=== PATIENT | male | born 1950 | race Caucasian/White ===

== ENCOUNTER → 2024-07-25 09:47 | Outpatient (REF) | payer OTHER, SELFPAY | LOC: RCS 09:47 | PROVIDERS: ATTENDING PHYSICIAN Nurse Practitioner Acute Care; FAMILY PHYSICIAN Family Medicine | DX: I71.43 Infrarenal abdominal aortic aneurysm, without rupture (principal); Z01.810 Encounter for preprocedural cardiovascular examination | CPT/HCPCS: 93306 ==

== ENCOUNTER → 2024-08-10 10:26 | Outpatient (REF) | payer OTHER, SELFPAY ==
[2024-08-10 11:47] LABS: Blood Urea Nitrogen 46 mg/dl (9-20); Calcium 9.4 mg/dl (8.4-10.2); Carbon Dioxide 30 mmol/L (22-30); Chloride 99 mmol/L (98-107); Glucose 99 mg/dl (70-99); Potassium 4.7 mmol/L (3.5-5.1); Sodium 140 mmol/L (135-145); eGFR 45.21
== END ==
LOC: RAD 10:26
PROVIDERS: ATTENDING PHYSICIAN Nurse Practitioner Acute Care; FAMILY PHYSICIAN Family Medicine; REFERRING PHYSICIAN Nurse Practitioner
DX: I71.43 Infrarenal abdominal aortic aneurysm, without rupture (principal); I73.9 Peripheral vascular disease, unspecified; Z01.810 Encounter for preprocedural cardiovascular examination; Z87.891 Personal history of nicotine dependence
CPT/HCPCS: 36415; 80048; 93880

== ENCOUNTER 2024-08-12 19:15 | Inpatient (IN) | payer OTHER, SELFPAY ==
[2024-08-12] VITALS (9 sets, daily range): BP systolic 94–134; BP diastolic 70–98; BMI 17.7
--- NOTE | 2024-08-12 12:16 | ED.GENMED ---
History of Present Illness
<Yani Rodriguez PA-C - Last Filed: 08/12/24 17:29>
General
Chief Complaint: DVT/Possible Blood Clot
Source: patient
Exam Limitations: none
Time Seen by Provider: 08/12/24 12:08
Nursing documentation reviewed up to this point in time: agreed with
History of Present Illness
History of Present Illness:
This is a 74 y/o male with pmh of COPD, HTN, HLP presents emergency department today with a sudden onset of left lower extremity pain for the past 3 days. Patient reports that the pain is worse with walking. Patient denies any paresthesias in his
extremities, any loss of sensation. Of note, patient states that in that same leg, he broke his leg and subsequently had blood clots, and he was put on Eliquis few months ago. Patient did take his morning dose of Eliquis today. Patient states
that he was told he has 'possible clots' in his leg and an appointment was set up to see Dr. Tinajero vascular surgeon at [facility] and to reassess his abdominal aneurysm, however he had increasing pain in his leg and so he presented to
the emergency department today. Patient denies any chest pain, abdominal pain, shortness of breath, dizziness, lightheadedness. Patient does wear 2 L of oxygen daily for his history of COPD.
Past History
<ABDULKADIR Hagen Last Filed: 08/12/24 17:29>
Past History
ED Past Medical History: COPD, HTN, Hypercholesterolemia and Psychiatric (anxiety)
Social History
Tobacco: Non-smoker
Alcohol: None
Drug: None
Personal: Single
Living: alone
Review of Systems
<ABDULKADIR Hagen Last Filed: 08/12/24 17:29>
Review of Systems
All Other Systems: ROS reviewed and negative except as documented in HPI and ROS
Phy Exam
<ABDULKADIR Hagen Last Filed: 08/12/24 17:29>
Physical Exam
Physical Exam:
General: Patient is well appearing and in no acute distress; non-toxic
Skin: left lower extremity cool to the touch
Head: Normocephalic, atraumatic
Eyes: Sclera non-icteric. EOMs intact.
Cardiac: Regular rate
Peripheral Vascular: left lower extremity cool to the touch.
RLE: 1+ dorsalis pedis pulse with doppler. Bounding palpable femoral pulse
LLE: Diminished femoral pulse to palpation. Lack of DP pulses with Doppler.
Pulm: Normal respiratory effort, pt on 2L oxygen chronically
Musculoskeletal: LLE tender to palpation
Neuro: CN II-XII intact, no focal neurologic deficits.
Psychiatric: Appropriate mood and affect.
Course
<Hope ABDULKADIR Hirsch Last Filed: 08/12/24 17:29>
Orders/Labs/Results
Orders:
Orders
08/12/24 11:15
Periph Venous Lwr Ext Left US [US Periph Venous LOWER Ext LT] Urgent
Comment:
Reason For Exam: pain in left upper leg
08/12/24 13:09
CT Abd Aorta Angio W/ Run Off Urgent
Comment:
Reason For Exam: known AAA left leg pain
08/12/24 13:10
Vascular Surgery Consult Urgent
Consulting Provider: Ar Marroquin III
Was physician already notified: Yes
08/12/24 13:18
Oxycodone [Roxicodone] 5 mg PO NOW STA
08/12/24 13:20
Complete Blood Count/With Diff Urgent
Comprehensive Metabolic Panel Urgent
08/12/24 15:59
Type+Screen Urgent
PTT Urgent
Prothrombin Time Urgent
08/12/24 16:05
Propofol [Diprivan] 20 ml .ROUTE .STK-MED
Rocuronium [place] [Rocuronium] 50 mg .ROUTE .STK-MED ONE
08/12/24 16:06
Lidocaine HCl/Pf [Xylocaine-Mpf 1% Vial] 50 mg .ROUTE .STK-MED ONE
08/12/24 16:07
Phenylephrine HCl/0.9% NaCl [Genaro-Synephrine] 1,000 mcg .ROUTE .STK-MED ONE
Phenylephrine [Genaro-Synephrine] 10 mg .ROUTE .STK-MED ONE
08/12/24 16:11
Dexamethasone Sod Phosphate [Decadron] 20 mg .ROUTE .STK-MED ONE
Ondansetron Injectable [Zofran] 4 mg .ROUTE .STK-MED ONE
08/12/24 16:15
0.9% Sodium Chloride 1000 ml [Nss] 1,000 ml IV PER PROTOCOL
HYDROmorphone [Dilaudid] 0.25 mg IV PACU-Q5MPRN PRN
HYDROmorphone [Dilaudid] 0.5 mg IV PACU-Q5MPRN PRN
Meperidine [Demerol] 12.5 mg IV PACU-Q5MPRN PRN
Ondansetron Injectable [Zofran] 4 mg IV PACU-ONCEPRN PRN
Prochlorperazine [Compazine] 5 mg IV PACU-ONCEPRN PRN
Notify MD As Directed
Notify physician if: for SDS patients with known or suspected sleep obstructive sleep apnea, monitor in the
PACU.
Notify MD for any apneic/desaturation episodes
O2 Therapy [RESP] Urgent
Titrate/Wean O2 to maintain O2 sat greater than (%): 92
Special Instructions: -Provide supplemental oxygen to achieve O2 sat of 92% or greater.
-After 15 min, may wean O2 and discontinue if patient is able to maintain O2 sat of 92%
or greater during recovery period.
If patient is a discharge home, without oxygen therapy, notify anestheiologist if
unable to maintain O2 SAT of 92% or greater on room air for MD clearance.
08/12/24 16:20
EKG [Electrocardiogram (*1)] Urgent
Reason for Study: PreOp
EKG- Treatment ONCE
08/12/24 16:31
ABO2 Urgent
BBK Wristband Number:
Associate notified that ABO2 has been ordered: [id number]
Date: 08/12/24
Time: 16:14
Cancer Program Coordinator ID: [id number]
08/12/24 16:32
Heparin 5,000 units .ROUTE .STK-MED ONE
Thrombin Topical (Bovine) [Thrombin-Jmi 28541 Unit Vial] 20,000 units .ROUTE .STK-MED ONE
08/12/24 16:37
Thrombin Topical (Bovine) [Thrombin-Jmi 27145 Unit Vial] 20,000 units .ROUTE .STK-MED ONE
08/12/24 16:40
Fentanyl Citrate/Pf [Sublimaze] 250 mcg .ROUTE .STK-MED ONE
08/12/24 17:09
Rocuronium [place] [Rocuronium] 50 mg .ROUTE .STK-MED ONE
08/12/24 17:21
CeFAZolin SODIUM [Ancef] 2,000 mg .ROUTE .STK-MED ONE
Succinylcholine Chloride [Succinylcholine] 200 mg .ROUTE .STK-MED ONE
Abnormal Lab Results
08/12/24 08/12/24
13:20 15:59
RBC 4.09 L 10^6/uL
(4.70-6.10)
Hgb 12.8 L g/dL
(13.0-18.0)
MCV 95.4 H fL
(80.0-94.0)
MCH 31.3 H pg
(27.0-31.0)
MCHC 32.8 L g/dL
(33.0-37.0)
Absolute Neuts (auto) 7.8 H 10^3/uL
(1.4-6.5)
Absolute Monos (auto) 1.0 H 10^3/uL
(0.1-0.6)
Lymphocytes % 15.8 L %
(20.5-51.1)
PT 18.9 H Sec
(11.4-14.6)
BUN 44 H mg/dl
(9-20)
08/12/24 13:20
08/12/24 13:20
Vital Signs
Initial and Last Documented VS:
Initial Vital Signs
Temp Pulse Resp BP Pulse Ox
98.2 F 113 18 123/98 91
08/12/24 11:13 08/12/24 11:13 08/12/24 11:13 08/12/24 11:13 08/12/24 11:13
Last Documented Vital Signs
Temp Pulse Resp BP Pulse Ox
96.5 F L 109 22 134/83 95
08/12/24 15:40 08/12/24 15:40 08/12/24 15:40 08/12/24 15:40 08/12/24 15:40
<Murtaza Zimmerman MD - Last Filed: 08/12/24 16:31>
Orders/Labs/Results
Orders:
Orders
08/12/24 11:15
Periph Venous Lwr Ext Left US [US Periph Venous LOWER Ext LT] Urgent
Comment:
Reason For Exam: pain in left upper leg
08/12/24 13:09
CT Abd Aorta Angio W/ Run Off Urgent
Comment:
Reason For Exam: known AAA left leg pain
08/12/24 13:10
Vascular Surgery Consult Urgent
Consulting Provider: Ar Marroquin III
Was physician already notified: Yes
08/12/24 13:18
Oxycodone [Roxicodone] 5 mg PO NOW STA
08/12/24 13:20
Complete Blood Count/With Diff Urgent
Comprehensive Metabolic Panel Urgent
08/12/24 15:59
Type+Screen Urgent
PTT Urgent
Prothrombin Time Urgent
08/12/24 16:05
Propofol [Diprivan] 20 ml .ROUTE .STK-MED
Rocuronium [place] [Rocuronium] 50 mg .ROUTE .STK-MED ONE
08/12/24 16:06
Lidocaine HCl/Pf [Xylocaine-Mpf 1% Vial] 50 mg .ROUTE .STK-MED ONE
08/12/24 16:07
Phenylephrine HCl/0.9% NaCl [Genaro-Synephrine] 1,000 mcg .ROUTE .STK-MED ONE
Phenylephrine [Genaro-Synephrine] 10 mg .ROUTE .STK-MED ONE
08/12/24 16:11
Dexamethasone Sod Phosphate [Decadron] 20 mg .ROUTE .STK-MED ONE
Ondansetron Injectable [Zofran] 4 mg .ROUTE .STK-MED ONE
08/12/24 16:15
0.9% Sodium Chloride 1000 ml [Nss] 1,000 ml IV PER PROTOCOL
HYDROmorphone [Dilaudid] 0.25 mg IV PACU-Q5MPRN PRN
HYDROmorphone [Dilaudid] 0.5 mg IV PACU-Q5MPRN PRN
Meperidine [Demerol] 12.5 mg IV PACU-Q5MPRN PRN
Ondansetron Injectable [Zofran] 4 mg IV PACU-ONCEPRN PRN
Prochlorperazine [Compazine] 5 mg IV PACU-ONCEPRN PRN
Notify MD As Directed
Notify physician if: for SDS patients with known or suspected sleep obstructive sleep apnea, monitor in the
PACU.
Notify MD for any apneic/desaturation episodes
O2 Therapy [RESP] Urgent
Titrate/Wean O2 to maintain O2 sat greater than (%): 92
Special Instructions: -Provide supplemental oxygen to achieve O2 sat of 92% or greater.
-After 15 min, may wean O2 and discontinue if patient is able to maintain O2 sat of 92%
or greater during recovery period.
If patient is a discharge home, without oxygen therapy, notify anestheiologist if
unable to maintain O2 SAT of 92% or greater on room air for MD clearance.
08/12/24 16:20
EKG [Electrocardiogram (*1)] Urgent
Reason for Study: PreOp
EKG- Treatment ONCE
08/12/24 16:31
ABO2 Urgent
BBK Wristband Number:
Associate notified that ABO2 has been ordered: [id number]
Date: 08/12/24
Time: 16:14
Cancer Program Coordinator ID: [id number]
08/12/24 16:32
Heparin 5,000 units .ROUTE .STK-MED ONE
Thrombin Topical (Bovine) [Thrombin-Jmi 95782 Unit Vial] 20,000 units .ROUTE .STK-MED ONE
08/12/24 16:37
Thrombin Topical (Bovine) [Thrombin-Jmi 88806 Unit Vial] 20,000 units .ROUTE .STK-MED ONE
08/12/24 16:40
Fentanyl Citrate/Pf [Sublimaze] 250 mcg .ROUTE .STK-MED ONE
08/12/24 17:09
Rocuronium [place] [Rocuronium] 50 mg .ROUTE .STK-MED ONE
08/12/24 17:21
CeFAZolin SODIUM [Ancef] 2,000 mg .ROUTE .STK-MED ONE
Succinylcholine Chloride [Succinylcholine] 200 mg .ROUTE .STK-MED ONE
Abnormal Lab Results
08/12/24 08/12/24
13:20 15:59
RBC 4.09 L 10^6/uL
(4.70-6.10)
Hgb 12.8 L g/dL
(13.0-18.0)
MCV 95.4 H fL
(80.0-94.0)
MCH 31.3 H pg
(27.0-31.0)
MCHC 32.8 L g/dL
(33.0-37.0)
Absolute Neuts (auto) 7.8 H 10^3/uL
(1.4-6.5)
Absolute Monos (auto) 1.0 H 10^3/uL
(0.1-0.6)
Lymphocytes % 15.8 L %
(20.5-51.1)
PT 18.9 H Sec
(11.4-14.6)
BUN 44 H mg/dl
(9-20)
08/12/24 13:20
08/12/24 13:20
Vital Signs
Initial and Last Documented VS:
Initial Vital Signs
Temp Pulse Resp BP Pulse Ox
98.2 F 113 18 123/98 91
08/12/24 11:13 08/12/24 11:13 08/12/24 11:13 08/12/24 11:13 08/12/24 11:13
Last Documented Vital Signs
Temp Pulse Resp BP Pulse Ox
96.5 F L 109 22 134/83 95
08/12/24 15:40 08/12/24 15:40 08/12/24 15:40 08/12/24 15:40 08/12/24 15:40
[place];Yani Rodriguez PA-C - Last Filed: 08/12/24 17:29>
MDM/Problems Addressed
Differential Diagnosis Includes:
ddx include DVT, acute arterial occlusion, venous insufficiency/dependent edema, cellulitis, abrasion
MDM/Problems Addressed:
This is a 74 y/o male with pmh of COPD, HTN, HLP, known AAA presents emergency department today with a sudden onset of left lower extremity pain for the past 3 days. On physical exam, patient has diminished left femoral pulses, lack of dorsalis
pedis pulse with Doppler. Did discuss consult vascular, spoke to Dr. Marroquin on the phone who recommends obtaining CTA with runoff. He will come evaluate patient in the ER.
CTA demonstrates complete occlusion of left common iliac artery and external iliac artery. Dr. Marroquin plans to take patient to the OR for fem-fem bypass revascularization procedure. Considering patient's significant comorbidities, patient be
admitted to hospitalist. Patient referred for mission, patient will be taken to the OR promptly.
Chronic conditions affecting care:
COPD, hypertension, hyperlipidemia
<Yani Rodriguez PA-C - Last Filed: 08/12/24 17:29>
*Pulse Oximetry
Patient hypoxic: no
*Critical Care Note
Total Time (30-74mins, 75-104mins- exclusive of procedures): Not Applicable
Data Reviewed
Review of Other/Old Records Reveals: Records (Reviewed discharge summary from 04/06/2023, patient seen for acute pulmonary edema)
Source: patient and records
ED Attending Note
<Yani Rodriguez PA-C - Last Filed: 08/12/24 17:29>
-
Portions of this chart may have been created with voice recognition software.� Occasional wrong word or��sound alike� substitutions may have occurred due to the inherent limitations of voice recognition software.
<Murtaza Zimmerman MD - Last Filed: 08/12/24 16:31>
ED Attending Note
Patient seen and examined by attending physician: Yes
ED Attending Note:
Patient with history of left lower leg DVT noted incidentally on CT angiogram, performed as part of AAA evaluation, currently on Eliquis for the past 6 months, presents to ED secondary to sudden onset of left lower leg pain while he was watching TV
2 days ago. Since then, pain has been intermittent, usually improves with ambulation. In addition, patient has noticed discoloration of the affected leg, which improves when he elevates the leg. Denies loss of sensation or weakness. Denies fever
or chills. Denies trauma. In addition, patient states that he is currently being evaluated at [facility] for potential AAA repair, as his most recent study had revealed 10% increase in size. Patient reports having taken
Eliquis this morning.
Physical Exam
General: mild distress, not acutely ill. afebrile
Head: nc/at. eomi
Neck: supple. no meningeal signs.
Heart: s1/s2 regular rate and rhythm, no murmur. equal radial pulses.
Lungs: no acute respiratory distress. clear bilaterally
Abdomen: normal bowel sounds. not tender.
Neuro: alert and oriented. no focal neurological deficits
Skin: no rash
Psychiatric: well kept. interactive and cooperative
Extremities: left lower leg cool and dusky appearing, with DPP unable to be detected by palpation nor with Doppler.
In light of patient's being on Eliquis, compliant with medications, DVT would be highly unlikely. Patient's presenting symptoms were concerning for arterial insufficiency versus occlusion. As such, will discuss with on-call vascular surgeon
regarding optimal imaging study at this time.
Patient evaluated by vascular surgery with recommendation to obtain CT aorta angiogram with runoff.
CTA report reviewed. Pt evaluated by (vascular surgery) - will proceed to OR
Discharge Plan
Departure
Patient Disposition: Admit
Date of Disposition: 08/12/24
Time of Disposition: 15:58
Presentation/result/management discussed w/ accepting MD/DO: Hospitalist
Condition: Fair
Discharge Problem:
Acute occlusion of artery
Prescriptions:
No Action
albuterol sulfate 90 mcg/actuation HFA aerosol inhaler
2 puff INHALATION R Q4HPRN PRN (Reason: sob/wheezing)
Trelegy Ellipta 200-62.5-25 mcg blister with device
1 ea INHALATION R DAILY
amlodipine 10 mg tablet
10 mg PO DAILY
furosemide 20 mg tablet
20 mg PO DAILY
lisinopril 40 mg tablet
40 mg PO DAILY
Eliquis 5 mg tablet
5 mg PO BID
Referrals:
Ulisses King DO [Family Provider] -
Interventions
Interventions:
*Risk Screen - Suicide Last Done: 08/12/24 11:13
*General Assessment Last Done: 08/12/24 11:13
*Neglect/Abuse Screening Last Done: 08/12/24 11:25
ED- Fall Risk Assessment Last Done: 08/12/24 13:11
*ED COVID-19 Vaccine History Last Done: 08/12/24 11:13
*Nursing Disposition Last Done: 08/12/24 16:36
ED- Cardiac Assessment Last Done: 08/12/24 13:10
ED- Pulmonary Assessment Last Done: 08/12/24 13:10
ED-Peripheral Vascular Assessment Last Done: 08/12/24 13:10
ED-Skin Assessment Last Done: 08/12/24 13:10
Discharge Date and Time
Discharge Date/Time: 08/12/24 16:37
Print Language: VIETNAMESE
[2024-08-12] MEDS: ROXICODONE 5 MG PO (13:26)
[2024-08-12 13:33] LABS: % Basophils 0.7 % (0-2); % Eosinophils 1.4 % (0-6); % Immature Granulocytes 0.4 % (0-0.5); % Lymphocytes 15.8 % (20.5-51.1); % Neutrophils 72.7 % (42.2-75.2); Absolute Basophils 0.1 10^3/uL (0-0.2); Absolute Eosinophils 0.2 10^3/uL (0-0.7); Absolute Lymphocytes 1.7 10^3/uL (1.2-3.4); Absolute Neutrophils 7.8 10^3/uL (1.4-6.5); Hemoglobin 12.8 g/dL (13.0-18.0); Mean Corp Hgb Conc. 32.8 g/dL (33.0-37.0); Mean Corpuscular Hgb 31.3 pg (27.0-31.0); Mean Corpuscular Volume 95.4 fL (80.0-94.0); Mean Platelet Volume 10.2 fL (7.4-10.4); Nucleated Red Blood Cells % 0 % (-); Platelet Count 275 10^3/uL (130-400); Red Blood Cell Count 4.09 10^6/uL (4.70-6.10); Red Cell Dist. Width 13.2 % (11.5-14.5); White Blood Cell Count 10.7 10^3/uL (4.8-10.8)
[2024-08-12 14:01] LABS: ALT (SGPT) 19 U/L (0-50); AST (SGOT) 29 U/L (17-59); Albumin 4.2 g/dl (3.5-5.0); Alkaline Phosphatase 111 U/L (38-126); Blood Urea Nitrogen 44 mg/dl (9-20); Calcium 9.5 mg/dl (8.4-10.2); Carbon Dioxide 30 mmol/L (22-30); Chloride 102 mmol/L (98-107); Glucose 98 mg/dl (70-99); Sodium 142 mmol/L (135-145); Total Bilirubin 0.8 mg/dl (0.2-1.3); Total Protein 7.2 g/dl (6.3-8.2); eGFR > 60.00
--- NOTE | 2024-08-12 15:57 | CON.VAS ---
Addendum entered and electronically signed by rA Marroquin III, MD 08/12/24 18:58:
This patient was seen and examined with SARA Yip. I agree with the history and physical exam as well as the assessment and plan. I have the following additions:
74-year-old male with multiple comorbidities and advanced COPD on home oxygen presents with acute left leg pain and numbness
Has a known abdominal aortic aneurysm with bilateral iliac artery aneurysms and was recently evaluated by Dr. Bartolome Patricia at [facility]. Was scheduled to follow-up with Dr. Jaci Myles for complex aortic repair discussion
Scan from [place] in June was reviewed and bilateral iliacs were patent. CT angiogram today demonstrates thrombosis of the entire left iliac system. Right iliac patent. Large abdominal aortic aneurysm with poor infrarenal neck anatomy and severe
neck angulation.
On physical exam no Doppler signals are audible in the left foot. The left foot is cool and mottled. Doppler signals are easy to find in the right foot.
Will plan for fem-fem bypass to address acute limb ischemia. The technical aspects of this procedure were discussed with him in detail. The benefits and rationale for this approach were discussed with him in detail. Operative risks were discussed
with him in detail including but not limited to , stroke, heart attack, bleeding, infection, leg swelling, wound healing complications, pneumonia, reintubation, tracheostomy, vent dependent respiratory failure and the need for additional
procedures.
He expressed a clear understanding of our conversation and the risks involved with surgery and agrees to proceed as detailed above. I attempted to contact both his [id number] and his sister at the numbers listed but no answer at either number.
Signed:
Ar Marroquin III, MD
[facility] Vascular Surgery
[phone] ([phone])
Original Note:
Consultation
Consultation Request
Date/Time Consultation Performed: 08/12/2024 1600
Requesting Provider: Yani Rodriguez PA-C
Performing Provider: ELLE Monique for Ar Marroquin III, MD
Reason for Consultation: Acute pain and coolness at left lower extremity
Medical History
-
Chief Complaint: Acute pain and coolness at left lower extremity
History of Present Illness:
This is a 74-year-old male with significant past medical history for COPD, hypertension, general anxiety disorder, and AAA who presents to [facility] with continued acute onset left lower extremity pain. Patient endorses is that he was at
his usual state of health until this past Saturday (08/10/2024) at precisely 11 PM when he noted acute pain down the entirety of his left leg. It has persisted since his onset and now accompanying it is numbness/tingling and coolness to the foot
prompting him to seek ED evaluation. Denies any decrease in motor function. He denies prior vascular surgical intervention. However, he does note history of abdominal aortic aneurysm and saw Dr. Patricia at [facility] for initial
consultation for aneurysm repair. He notes that Dr. Patricia then referred him to Dr. Jaci Jin to explore options for complex endovascular repair. He has yet to follow-up with Dr. Jin. Denies any previous history of CAD. Does endorse history
of smoking but quit roughly 3 years ago. He is on oral anticoagulation of Eliquis for DVT diagnosed roughly 4 to 6 months ago following left lower extremity fracture that occurred prior to DVT development. He last took his Eliquis this morning at
7 AM.
Past Medical History
Past Medical History: COPD (On home O2 3 L nasal cannula), HTN and Other (Right upper lobe spiculated lung mass copy hyperlipidemia, general anxiety disorder, abdominal aortic aneurysm)
Past Surgical History: Other (Hernia repair)
Social History
Tobacco: Smoker
Allergies / Home Medications
Allergy/AdvReac Type Severity Reaction Status Date / Time
No Known Allergies Allergy Verified 08/12/24 11:15
�Medication �Instructions �Recorded �Confirmed �Type
albuterol sulfate 90 mcg/actuation 2 puff inhalation R Q4 PRN 04/03/23 04/03/23 History
aerosol inhaler sob/wheezing
fluticasone fur. 200 mcg-umeclid 1 ea inhalation R DAILY 04/03/23 04/03/23 History
62.5 mcg-vilant 25 mcg Lung/Breathing Issues
inhalat.powder (Trelegy Ellipta)
nifedipine 30 mg tablet,extended 30 mg PO DAILY #30 tabs 04/05/23 Rx
release 24 hr (Procardia XL)
prednisone 10 mg tablet 10 mg PO DIRECTED #20 tabs 04/05/23 Rx
Review of Systems
-
History Source: Patient
Constitutional: Reports No Symptoms
EENT: Reports No Symptoms
Respiratory: Reports No Symptoms
Cardiac: Reports No Symptoms
Vascular: Reports Leg Pain / Claudication and Numbness
Abdomen/GI: Reports No Symptoms
: Reports No Symptoms
Musculoskeletal: Reports Muscle Pain (Left lower extremity thigh and calf pain) and Edema
Skin: Reports No Symptoms
Neurological: Reports No Symptoms
Endocrine: Reports No Symptoms
Physical Exam
Vital Signs
Temp Pulse Resp BP Pulse Ox
96.5 F L 109 22 134/83 95
08/12/24 15:40 08/12/24 15:40 08/12/24 15:40 08/12/24 15:40 08/12/24 15:40
Lab Results
08/12/24 13:20
08/12/24 13:20
Physical Exam
General: No Apparent Distress
HEENT: Normocephalic, Anicteric and Atraumatic
Respiratory: Non Labored Respirations (On 3 L nasal cannula)
Cardiac: Negative JVD
GI: Soft, Non Tender and Non Distended
Musculoskeletal: Edema (+2 pitting edema)
Skin: Dry
Neuro: AO x 3
Pulses: Left Femoral: Doppler (Left femoral, popliteal, DP and PT pulses not palpable and unable to obtain by Doppler)
Assessment / Plan
-
Assessment: 74-year-old male who presents with acute limb threatening ischemia of left lower extremity CT demonstrates occlusion of left iliac artery
Plan:
Emergent OR for right to left femoral artery bypass
N.p.o.
Type and screen
Admission under hospitalist for management of comorbidities
HPI, physical exam, and CT results reviewed with attending Dr. Ar Marroquin who agrees with plan.
[2024-08-12 16:23] LABS: INR 1.53; PT 18.9 Sec (11.4-14.6)
[2024-08-12 16:24] LABS: APTT 33.9 Sec (23.4-35.0)
[2024-08-12 17:52] LABS: ACT-LR - POC 335 Seconds (116-155)
--- NOTE | 2024-08-12 19:52 | W.IMMPOSTOP ---
Surgical Immed Post Op Note
-
Primary Surgeon: Dr. Ar Thakur III, MD
Assisting Surgeon: Jordan Millard MD, PhD (PGY-2)
Pre-op Diagnosis: Acute occlusion of LLE artery
Post-op Diagnosis: Acute occlusion of LLE artery
Procedure Performed: Femoro-femoral bypass
Anesthesia Type: General
Specimen / Cultures: None
Estimated Blood Loss: 25cc
Complications: None
Operative Findings: The patient was brought to the OR and placed in the supine position. After thakur insertion, radial arterial line placement, and anesthetic induction and intubation, the patient was prepped and draped in usual sterile fashion. Of
note, the patient's left inguinal hernia was reduced at the start of the case. Incisions were made bilaterally on the groins. Electrocautery was used to dissect the subcutaneous tissue of both groins bilaterally. Sharp dissection was used to access
the femoral sheath and expose the common femoral arteries bilaterally. Proximal and distal control was obtained with vessel loops. A tunneler was used to create a subcutaneous tunnel over the pubic symphysis from the left to the right groin cut down
sites. A propaten ringed graft was passed through the subcutaneous tissue tract. The graft was sewn to the left and right common femoral arteries bilaterally in an end to side fashion with running suture. Hemostasis was ensured and the wound bed was
irrigated. Both groin sites were closed with running 2-0 and 3-0 suture layers, followed by won and interrupted nylon sutures at the skin. At the completion of the case, the patient had doppler signals noted in both PTs. The patient remained
intubated and was transferred to the ICU.
--- NOTE | 2024-08-12 19:54 | HPS.HSE ---
Family Physician
-
Family Physician: Ulisses King, DO
Chief Complaint
-
limb ischemia
History of Present Illness
74-year-old male past medical history of COPD on home oxygen, recent venous thromboembolism likely PE within past 6 months as per , hypertension, orthostatic hypotension, T12 vertebral compression fracture, right upper lobe spiculated lung mass,
renal calculi, asymptomatic abdominal aortic aneurysm, bilateral iliac artery aneurysms, presenting with acute left leg pain and numbness.
Patient underwent CT angiogram which demonstrates thrombosis of the entire left iliac system. Right iliac patent. Large abdominal aortic aneurysm with 4 infrarenal neck anatomy and severe neck angulation. Patient underwent femoral to femoral
bypass.
Patient was hypotensive after surgery and is on low-dose Genaro-Synephrine.
Patient drinks alcohol occasionally. He does not smoke.
Medical History
Past Medical History
Past Medical History: Reports Other ( COPD on home oxygen, recent venous thromboembolism likely PE within past 6 months as per , hypertension, orthostatic hypotension, T12 vertebral compression fracture, right upper lobe spiculated lung mass,
renal calculi, asymptomatic abdominal aortic aneurysm, bilateral iliac artery aneurysms,)
Past Surgical History: Reports None
Social History
Tobacco: Non-smoker
Alcohol: Occasional
Drug: None
Family History
Family History: Not pertinent
Allergies / Home Medications
Allergies reflects when Allergies were last updated in [email or web address].
Home Medications with original date entered in [email or web address]
Allergy/Medication List:
Allergies
Allergy/AdvReac Type Severity Reaction Status Date / Time
No Known Allergies Allergy Verified 08/12/24 11:15
Home Medications
albuterol sulfate 90 mcg/actuation aerosol inhaler 2 puff inhalation R Q4HPRN PRN sob/wheezing 04/03/23
fluticasone fur. 200 mcg-umeclid 62.5 mcg-vilant 25 mcg inhalat.powder (Trelegy Ellipta) 1 ea inhalation R DAILY Lung/Breathing Issues 04/03/23
amlodipine 10 mg tablet 10 mg PO DAILY 08/12/24
apixaban 5 mg tablet (Eliquis) 5 mg PO BID 08/12/24
furosemide 20 mg tablet 20 mg PO DAILY 08/12/24
lisinopril 40 mg tablet 40 mg PO DAILY 08/12/24
Review of Systems
-
History Source: Patient
A 12 point ROS was completed and negative except as noted: Yes
Constitutional: Reports No Symptoms
EENT: Reports No Symptoms
Respiratory: Reports No Symptoms
Cardiac: Reports No Symptoms
Abdomen/GI: Reports No Symptoms
: Reports No Symptoms
Musculoskeletal: Reports No Symptoms
Skin: Reports No Symptoms
Neurological: Reports No Symptoms
Endocrine: Reports No Symptoms
Hematologic/Lymphatic: Reports No Symptoms
Psych: Reports No Symptoms
Physical Exam
Vital Signs
Vital Signs
Temp Pulse Resp BP Pulse Ox
96.5 F L 109 22 134/83 95
08/12/24 15:40 08/12/24 15:40 08/12/24 15:40 08/12/24 15:40 08/12/24 15:40
Physical Exam
General: Well Developed, Well Nourished and No Apparent Distress
HEENT: NormoCephalic, Moist mucous membranes and Atraumatic
Respiratory: Clear
Cardiac: S1/S2 and Regular Rhythm; No Murmur or Rub
GI: Soft, Non Tender, Non Distended and Normal Bowel Sounds; No Organomegaly
Rectal: Deferred by Provider
Musculoskeletal: No Clubbing, No Cyanosis and No Edema
Skin: No Rash
Neuro: Nonfocal/grossly intact
Laboratory Results
-
Laboratory Results
PT 18.9 Sec (11.4-14.6) H 08/12/24 15:59
INR 1.53 08/12/24 15:59
APTT 33.9 Sec (23.4-35.0) 08/12/24 15:59
Total Bilirubin 0.8 mg/dl (0.2-1.3) 08/12/24 13:20
AST 29 U/L (17-59) 08/12/24 13:20
ALT 19 U/L (0-50) 08/12/24 13:20
Alkaline Phosphatase 111 U/L (38-126) 08/12/24 13:20
Data Reviewed
-
Lab Data: Labs Reviewed by me
Old Records: Reviewed
Impression/Plan
-
IMPRESSION:
PLAN:
# Acute left lower extremity limb ischemia
-Status post femorofemoral bypass
-Patient intubated going to ICU
-IV fluids
-Continue Genaro-Synephrine
-Rectal aspirin daily
-Heparin drip
-Check ABG, chest x-ray postintubation
-Vascular surgery following
-Bonding Supervisor consulted
Large abdominal aortic aneurysm
Bilateral iliac artery aneurysm
History of recent venous thromboembolism likely PE as per
-Patient has not been compliant with Eliquis
COPD
-On oxygen at baseline
-Continue DuoNebs
Essential hypertension
-Hold amlodipine, lisinopril
Orthostatic hypotension
T12 vertebral compression fracture
Right upper lobe spiculated lung mass
History of renal calculi
Full code
DVT prophylaxis�heparin drip
N.p.o.
--- NOTE | 2024-08-12 20:00 | PTCARENOTE ---
pt transferred from OR. pt intubated and sedated. prop, jase, N/S running. vascular checks continued. doppler pulses pt/ dp- checked with vascular team. maintaining MAP. >65 per MD orders. #7 ETT @21. vent settings 16/450/50%/ 5 of peep. clear lung
sounds. thakur draining clear urine. restraints. left radial a line. bilateral ACs. bilateral femoral CLINT dressings from sx. c/d/i. safe environment maintained.
[2024-08-12] MEDS: NSS 1000 IV (20:22)
[2024-08-12 20:41] LABS: B.E. -0.8 mmol/L; HCO3 23.4 mmol/L (21-28); O2 Saturation % 99.9 % (94-98); PCO2 36 mmHg (35-48); PO2 249 mmHg (83-108); pH 7.42 (7.35-7.45)
[2024-08-12 20:53] LABS: Hematocrit 32.2 % (39.0-52.0); Hematocrit 32.8 % (39.0-52.0); Hemoglobin 11.1 g/dL (13.0-18.0); Hemoglobin 11.2 g/dL (13.0-18.0); INR 1.69; Mean Corp Hgb Conc. 33.8 g/dL (33.0-37.0); Mean Corp Hgb Conc. 34.8 g/dL (33.0-37.0); Mean Corpuscular Hgb 31.5 pg (27.0-31.0); Mean Corpuscular Hgb 32.4 pg (27.0-31.0); Mean Corpuscular Volume 93.1 fL (80.0-94.0); Mean Corpuscular Volume 93.2 fL (80.0-94.0); Mean Platelet Volume 10.4 fL (7.4-10.4); Mean Platelet Volume 10.7 fL (7.4-10.4); PT 20.3 Sec (11.4-14.6); Platelet Count 250 10^3/uL (130-400); Platelet Count 258 10^3/uL (130-400); Red Blood Cell Count 3.46 10^6/uL (4.70-6.10); Red Blood Cell Count 3.52 10^6/uL (4.70-6.10); Red Cell Dist. Width 13.2 % (11.5-14.5); White Blood Cell Count 8.4 10^3/uL (4.8-10.8); White Blood Cell Count 8.8 10^3/uL (4.8-10.8)
[2024-08-12 20:57] LABS: Blood Urea Nitrogen 37 mg/dl (9-20); Calcium 8.7 mg/dl (8.4-10.2); Carbon Dioxide 23 mmol/L (22-30); Chloride 104 mmol/L (98-107); Estimated Creatinine Clearance 47 ml/min; Glucose 127 mg/dl (70-99); Potassium 4.6 mmol/L (3.5-5.1); Sodium 140 mmol/L (135-145); Triglycerides 68 mg/dl (10-149); eGFR > 60.00
[2024-08-12 21:11] LABS: APTT > 200 Sec (23.4-35.0)
[2024-08-12 22:24] LABS: APTT 140.2 Sec (23.4-35.0)
[2024-08-12] MEDS: HEPARIN 25000 UNITS/250 ML IV (22:50)
[2024-08-12] MEDS: SUBLIMAZE 50 MCG IV (23:26)
[2024-08-13] VITALS (46 sets, daily range): BP systolic 83–129; BP diastolic 58–90; PULSE 115–118; O2SAT 96–97; BMI 18.4
--- NOTE | 2024-08-13 | PTCARENOTE ---
heparin gtt added.
[2024-08-13 03:42] LABS: % Basophils 0.2 % (0-2); % Immature Granulocytes 0.3 % (0-0.5); % Lymphocytes 6.1 % (20.5-51.1); % Monocytes 4.2 % (1.7-9.3); % Neutrophils 89.2 % (42.2-75.2); Absolute Lymphocytes 0.6 10^3/uL (1.2-3.4); Absolute Monocytes 0.4 10^3/uL (0.1-0.6); Absolute Neutrophils 9.4 10^3/uL (1.4-6.5); Hematocrit 33.5 % (39.0-52.0); Hemoglobin 11.4 g/dL (13.0-18.0); Mean Corpuscular Hgb 31.7 pg (27.0-31.0); Mean Corpuscular Volume 93.1 fL (80.0-94.0); Mean Platelet Volume 10.7 fL (7.4-10.4); Nucleated Red Blood Cells % 0 % (-); Platelet Count 260 10^3/uL (130-400); White Blood Cell Count 10.5 10^3/uL (4.8-10.8)
[2024-08-13 03:56] LABS: INR 1.41; PT 17.8 Sec (11.4-14.6)
[2024-08-13 03:58] LABS: APTT 98.5 Sec (23.4-35.0)
--- NOTE | 2024-08-13 04:17 | PTCARENOTE ---
pt reassessed. no changes in pt assessment. safe environment maintained.
[2024-08-13 04:32] LABS: ALT (SGPT) 17 U/L (0-50); AST (SGOT) 28 U/L (17-59); Albumin 3.6 g/dl (3.5-5.0); Alkaline Phosphatase 104 U/L (38-126); Blood Urea Nitrogen 35 mg/dl (9-20); Calcium 8.7 mg/dl (8.4-10.2); Carbon Dioxide 20 mmol/L (22-30); Chloride 107 mmol/L (98-107); Estimated Creatinine Clearance 47 ml/min; Glucose 118 mg/dl (70-99); Potassium 4.9 mmol/L (3.5-5.1); Sodium 141 mmol/L (135-145); Total Bilirubin 0.6 mg/dl (0.2-1.3); Total Protein 6.2 g/dl (6.3-8.2); eGFR > 60.00
[2024-08-13] MEDS: SUBLIMAZE 50 MCG IV (05:18)
[2024-08-13] MEDS: NSS 1000 IV (07:15)
--- NOTE | 2024-08-13 07:46 | CON.INTV ---
Consultation
Consultation Request
Date/Time Consultation Requested: 08/13/2024-7 AM
Date/Time Consultation Performed: 08/13/2024-7:30 AM
Requesting Provider: Vascular surgery
Performing Provider: Dr. Garland
Reason for Consultation: Postoperative critical care management
Medical History
-
Chief Complaint: PAD
History of Present Illness:
74-year-old male former smoker with advanced COPD on home oxygen and recent venous thromboembolic disease, hypertension, orthostatic hypotension, vertebral compression fracture, renal calculi presented with left leg pain and numbness found to have
significant thrombosis of the entire left iliac system and underwent femoral to femoral bypass-supervisor fur dressing consulted for postoperative ventilator/critical care management 08/13/2024. The patient is seen in the morning, he is still on a ventilator
and review of systems was unobtainable. He has been stable on the ventilator, no increase secretions, spontaneous breathing trial was initiated.
Past Medical History
Past Medical History: None (COPD-details unclear-on home oxygen. Right upper lobe spiculated lung mass. Recent pulmonary embolism. Hypertension. Orthostatic hypotension. T12 vertebral compression fracture. Renal calculi. AAA. PAD.)
Social History
Tobacco: Former Smoker
Alcohol: Occasional
Drug: None
Personal:
Living: With Family
Occupational Exposures: Unknown tuberculosis exposure
Environmental Exposures: Unknown asbestos exposure
Family History
Family History: Reviewed & Not Pertinent
Allergies / Home Medications
Allergies
Allergy/AdvReac Type Severity Reaction Status Date / Time
No Known Allergies Allergy Verified 08/12/24 11:15
Home Medications
�Medication �Instructions �Recorded �Confirmed �Last Taken �Type
albuterol sulfate 90 mcg/actuation 2 puff inhalation R Q4HPRN PRN 04/03/23 08/12/24 Unknown History
aerosol inhaler sob/wheezing
fluticasone fur. 200 mcg-umeclid 1 ea inhalation R DAILY 04/03/23 08/12/24 08/12/24 History
62.5 mcg-vilant 25 mcg Lung/Breathing Issues
inhalat.powder (Trelegy Ellipta)
amlodipine 10 mg tablet 10 mg PO DAILY 08/12/24 08/12/24 08/12/24 History
apixaban 5 mg tablet (Eliquis) 5 mg PO BID 08/12/24 08/12/24 08/12/24 History
furosemide 20 mg tablet 20 mg PO DAILY 08/12/24 08/12/24 08/11/24 History
lisinopril 40 mg tablet 40 mg PO DAILY 08/12/24 08/12/24 08/12/24 History
Review of Systems
-
Unable to Obtain full review of systems at this time due to: Other (Per HPI)
Vitals / Labs / Diagnostic Testing
Vital Signs
Temp Pulse Resp BP Pulse Ox
97.6 F 97 14 110/75 92
08/13/24 04:00 08/13/24 05:15 08/13/24 05:15 08/13/24 05:15 08/13/24 05:15
Lab Data
08/13/24 03:21
08/13/24 03:21
Laboratory Results
08/12/24 08/12/24 08/12/24
15:59 20:34 20:34
PT 18.9 H 20.3 H
INR 1.53 1.69
APTT 33.9 > 200 H* Cancelled
pH 7.42
pCO2 36
pO2 249 H
HCO3 23.4
O2 Delivery Level
08/12/24 08/13/24
22:04 03:21
PT 17.8 H
INR 1.41
APTT 140.2 H 98.5 H
pH
pCO2
pO2
HCO3
O2 Delivery Level
Diagnostic Testing:
Physical Exam
-
Exam:
Well-nourished and well-developed in no apparent distress
HEENT-atraumatic, normocephalic, oral tracheal intubation
Neck-supple, no JVD, no bruit
Heart-regular rate and rhythm-no murmurs, rubs or gallops
Chest with barrel chested this, diminished breath sounds, prolonged expiratory time, no wheezes or crackles
Abdomen-soft, nontender, nondistended, no hepatosplenomegaly
Extremities-no cyanosis, clubbing, edema and good peripheral pulses
Integument-intact, no rashes, lesions or ecchymosis
Neurology-alert and oriented, nonfocal motor and sensory exam
Assessment
-
74-year-old male former smoker with advanced COPD on home oxygen and recent venous thromboembolic disease, hypertension, orthostatic hypotension, vertebral compression fracture, renal calculi presented with left leg pain and numbness found to have
significant thrombosis of the entire left iliac system and underwent femoral to femoral bypass-supervisor fur dressing consulted for postoperative ventilator/critical care management 08/13/2024.
Acute left lower extremity limb ischemia
Status post right to left femoral-femoral bypass using 8 mm ringed reinforced PTFE graft-Dr. Marroquin 08/12/2024
Mild grwnqz-kvymasnsve-dfovddsdfa 11.4
Ventilator dependent respiratory failure postop
Intubated 08/12/2024
Extubated 08/13/2024
Mild hyperglycemia
Multiple pulmonary nodules-possibly increasing in size-patient followed by [facility]-he reports 2 recent PET scans, lung biopsy, and repetitive CTs of the chest
Conditions present prior to admission:
Recent hospitalization 04/03/2023-COPD exacerbation and right upper lobe spiculated mass
COPD-details unclear-on home oxygen.
ABG110/13/2019 4-40 0.37-no obvious CO2 retention
Right upper lobe spiculated lung mass-known for some time--reportedly followed by [facility] with recent PET scans, he reports biopsy, and multiple CTs-records not available
Recent pulmonary embolism.
Hypertension.
Orthostatic hypotension.
T12 vertebral compression fracture.
Renal calculi.
AAA.
PAD.
Plan
Postoperative surgical intensive care unit monitoring
Ventilator settings reviewed
Ventilator adjusted
Follow ABG
Spontaneous breathing trial-Hope to extubate
Incentive spirometry once extubated
Nebulizers
Aspiration precautions
Obtain pulmonary history
Neuro and vascular checks per protocol
Vascular surgery following-correspondence and operative notes reviewed
Phenylephrine if needed-attempt to wean off
Monitor blood sugar
Insulin supplementation as needed
DVT prophylaxis-on heparin drip
Early nutrition
Early mobilization
Will require close outpatient pulmonary ygatzf-gq-bvk multiple suspicious pulmonary nodules/masses, advanced emphysema-he reports following with [facility]-strongly urged to follow-up as he has enlarging pulmonary nodules-he is aware and
will do so
He also inquired about pulmonary valves-I suggested he talk to his local radio communications mechanician about this as well, Dr. Garland did describe benefits and risks and even some inclusion criteria with him
Critical care statement: A total of 55 minutes of critical care time was provided for this patient today. This includes management of unstable vital signs, evaluation of the patient at bedside, reviewing the patient's pertinent medical records
including radiographs, microbiology, laboratory evaluations, and discussion with primary team, consultants, pharmacy, nutrition, physical therapy, case management, charge nurse, critical care nursing, and respiratory therapy.
Diagnostic data:
Chest x-ray 04/03/2023-COPD changes, trace bilateral pleural effusions
Chest x-ray 08/12/2024-endotracheal tube in place, right upper lobe spiculated nodular opacification concerning for cancer
CT chest 04/04/23-18 mm spiculated right upper lobe mass, COPD changes, 5 mm probable benign pulmonary nodule left lower lobe, no pulm embolism, 80% compression fracture T12, multiple bilateral nonobstructing renal calculi, hepatic cysts
CT abdomen 08/12/24-8.6 cm fusiform distal AAA, bilateral aneurysmal dilation of the common iliac arteries, complete occlusion of the left common iliac artery and external iliac artery as well as the left internal iliac artery, moderate to
high-grade focal stenosis proximal right external iliac artery, advanced emphysematous changes and a 1 cm right lateral costophrenic angle nodule which is increased in size
Left lower extremity ultrasound 08/12/2024-no evidence for left lower extremity DVT
Echocardiogram 07/25/2024-EF 60-65%, no significant mitral valve abnormalities, PA systolic 35-40
Data Reviewed
-
EKG: Report reviewed by me
Radiology: Image personally visualized and interpreted and Report reviewed by me
CT Scan: Image personally visualized and interpreted and Report reviewed by me
Medical Tests (Nuc Med, Echo etc): Report reviewed by me
Labs: Labs reviewed by me
Old Records: Reviewed
Critical Care Time (in minutes): 55
--- NOTE | 2024-08-13 07:49 | W.PN.ANS.POP ---
Anesthesia Post Operative
- Anesthesia Post Op Note
Vital Signs Stable-See Nursing Note: Yes
Airway Patent: Yes
Adequate Pain Control: Yes
Change in Mental Status: No (pt sedated on propofol infusion)
Current Postoperative Nausea & Vomiting: No
Anesthesia Complications: No
General Anesthetic Recall: No
Unplanned Admission: No
Post Op Hydration Adequate: Yes
--- NOTE | 2024-08-13 08:34 | W.PN.VS ---
Today's Communication / Plan
-
D/w Dr Marroquin
Assessment/Plan
-
POD 1 Fem-fem bypass
Plan:
-Extubated this am
-Cont heparin gtt
-DC blaze and a-lindsey
-OOB/chair
-PO meds and advance diet
Subjective Data
-
Date of Service: August 13, 2024
Pt seen at bedside this am. Pt awake and attempting to pull at ET tube. Restraints in use for this. Pt is easily calmed. No events overnight.
Objective Data
-
Vital Signs
Temp Pulse Resp BP Pulse Ox
97.7 F 97 14 110/75 96
08/13/24 08:00 08/13/24 05:15 08/13/24 05:15 08/13/24 05:15 08/13/24 08:00
Intake and Output
08/12/24 08/13/24 08/14/24
06:59 06:59 06:59
Intake Total 1125.7 / 1229.4 198.1 / 198.1
Output Total
Balance 510.7 / 614.4 143.1 / 143.1
Intake:
IV fluids (Total) 1125.7 / 1229.4 198.1 / 198.1
Nss 1,000 ml @ 80 mls/hr IV . 880 / 960 160 / 160
[id number] MARIA LUISA Rx#:[id number]
heparin 40 / 45 10 10
jase 132 / 144 18 / 18
prop 73.7 / 80.4 10.1 / 10.1
Output:
UrineBlaze 615 / 615
Lab Results
08/13/24 03:21
08/13/24 03:21
Calcium 8.7 mg/dl (8.4-10.2) 08/13/24 03:21
Total Bilirubin 0.6 mg/dl (0.2-1.3) 08/13/24 03:21
AST 28 U/L (17-59) 08/13/24 03:21
ALT 17 U/L (0-50) 08/13/24 03:21
Alkaline Phosphatase 104 U/L (38-126) 08/13/24 03:21
Total Protein 6.2 g/dl (6.3-8.2) L 08/13/24 03:21
Albumin 3.6 g/dl (3.5-5.0) 08/13/24 03:21
Physical Exam
-
Awake, alert
Mild tachycardia 111
Intubated
Abd soft, non tender
Groin sites with PICOs intact, scant drainage, flat, soft
Doppler left PT and right DP, feet warm and pink
[2024-08-13 08:45] LABS: HCO3 24.3 mmol/L (21-28); O2 Saturation % 95.2 % (94-98); PCO2 42 mmHg (35-48); PO2 70 mmHg (83-108); pH 7.37 (7.35-7.45)
--- NOTE | 2024-08-13 08:55 | PTCARENOTE ---
recd 0700 handoff with pulse checks in room. gtts infusing, propofol and jase as noted, see documentation. resp here, propofol decr as noted for SBT, pt awake, sitting up, gesturing about care, denies pain at present. bilat kelli drains green
light, suction appropriate and maintained. small scant old dots of dark blood bilat, R>L, very minimal. doppler signals remain, DP at times near toes, L weaker than R, anterior tib stronger. seen by Vascular, updated. ETT to vent, tolerating
settings on AC and weaning at CP/PS as noted. ABG drawn and sent, pt seen by Dr. Garland, results noted, extubate order obtained, extubated smoothly to nasal cannula at 0852. almost immediately very talkative, encouraged to conserve energy for
breathing. vascular team updated, orders obtained. art line with some oozing and small hematoma at site, orders obtained to dc. DC'd without incident, pressure held 8 min, hemostatic. call hicks in reach.
[2024-08-13] MEDS: PROTONIX IV 40 MG IV (09:19)
--- NOTE | 2024-08-13 09:38 | OR.RPT ---
Operative Report
Operative Report
Date of Operation: 08/13/2024
Pre Op Diagnosis:
1.) acute limb ischemia, left lower extremity with thrombosis of entire left iliac system
2.) abdominal aortic aneurysm
3.) bilateral iliac artery aneurysms
4.) advanced COPD with home oxygen dependence
Post Op Diagnosis:
1.) acute limb ischemia, left lower extremity with thrombosis of entire left iliac system
2.) abdominal aortic aneurysm
3.) bilateral iliac artery aneurysms
4.) advanced COPD with home oxygen dependence
Procedure: Right to left femorofemoral bypass using 8 mm ringed reinforced PTFE graft
Surgeon: Ar Marroquin III, MD
Anesthesia: General
Complications: None
Estimated Blood Loss: 25 cc
History and Indications for Procedure: 74-year-old male with multiple advanced medical comorbidities who presents with acute limb ischemia to his left lower extremity. Cross-sectional imaging demonstrated a significant abdominal aortic aneurysm
with bilateral iliac artery aneurysms and complete thrombosis of the left iliac system. Review of CT imaging from the [facility] in June 2024 demonstrated a patent left iliac system and also revealed chronic bilateral SFA
occlusions. He was taken to the operating room for open revascularization of his left lower extremity
Procedure in Detail: Collin Miller was correctly identified and placed supine on the operating table. After adequate induction of anesthesia the bilateral groins and thighs were positioned, prepped and draped in the usual sterile fashion.
Preoperative antibiotics were administered. A timeout procedure was performed with the nursing and anesthesia staff confirming the patients identity as well as the nature and laterality of the procedure.
Vertical groin incisions were made bilaterally. Electrocautery and sharp dissection were used to dissect out the femoral arteries bilaterally. On the right, the common femoral artery and the femoral bifurcation arteries were exposed. Proximal and
distal control was obtained with vessel loops. On the left, the common femoral artery and the profunda femoral artery were exposed.
A tunnel was created over the pubic bone between the two incisions and an 8 mm mm ringed Propaten graft was brought through the tunnel.
The patient was systemically heparinized.
An arteriotomy was made in the right common femoral artery and was extended proximally and distally with Wilson scissors. The end of the 8 mm graft was beveled and an end-to-side anastomosis was performed with a running CV-6 Goretex suture. Upon
completion of the anastomosis the proximal and distal loops were released. There was excellent pulsatile bleeding coming from the distal end of the graft in the left groin. There was an excellent pulse in the common femoral artery.The graft was
retrograde flushed with heparinized saline solution and a soft clamp was placed on the graft just off the anastomosis.
The proximal and distal vessel loops were then secured in the left groin. An arteriotomy was made on the common femoral artery artery with an 11-blade and extended proximally and distally with Wilson scissors. The profunda femoral artery vessel loop
was released and the artery backbled. The profunda was flushed with heparinized saline solution. The graft was pressurized temporarily, shortened and beveled for the anastomosis. The anastomosis was performed to the left common femoral artery with
a running CV-6 Goretex suture. Prior to the completion of the anastomosis the clamp was removed temporarily to forward flush the graft. The graft and area under the anastomosis were then flushed once again with heparinized saline. The anastomosis
was completed and the loops as well as the clamp released. There was an excellent pulse in the graft as well as the proximal profunda femoral artery. There was a good doppler signal in the profunda femoral artery.
Both suture lines were closely inspected for hemostasis which was achieved. The wounds were irrigated with warm saline solution. Hemostasis was achieved in the wound beds bilaterally. The wounds were closed in layers and sterile CLINT dressings
applied.
The patient tolerated the procedure well and was taken to the ICU in stable condition.
Attestation: I was present and responsible for the entire procedure
Signed:
Ar Marroquin III, MD
[facility]ascular Surgery
[phone] (ocky)
[2024-08-13] MEDS: LOW STRENGTH ASPIRIN 81 MG PO (10:22)
--- NOTE | 2024-08-13 12:00 | PTCARENOTE ---
talkative, no distress. complete CHG bath, OOB to chair, tolerated. in recliner. tolerating 3l nc. art line dcd. thakur out per order. vascular checks continue. swallowed ice chips, diet per order.
--- NOTE | 2024-08-13 13:01 | CM ---
Addendum entered by Salazar Hawk 08/13/24 15:37:
PT and OT evaluations noted - SNF level of care recommended.
CM met with the pt and had a long discussion regarding being safe at home. In the beginning, pt expressed his strong resistance to go to a SNF. pt stated he was at [facility] and did not like there, was at the [facility],
spent there more than a month and paid almost $3,000.00. Pt stated if he really needs to go to a SNF [place] [facility]
A referral to [facility] made. Awaiting for determination.
D/C plan: [facility] when medically stable.
CM will follow with discharge plan updates as hospitalization progresses
Original Note:
CM following re: discharge planning.
Reviewed pt's chart, met with pt.
Pt is a 74 year old male, admitted with primary dx of POD 1 Fem-fem bypass.
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 Pt described himself as independent in all areas [employer]. No DME, VN or SNF
history.
PT and OT will evaluate the pt to determine a level of care at discharge.
PCP: Ulisses King
Pharmacy: [facility].
D/C plan: home with possible VN services if recommended by PT/OT.
CM will follow with discharge plan updates as hospitalization progresses
--- NOTE | 2024-08-13 14:08 | W.PN.HOSP.TC ---
Today's Communication/Plan
-
see note
Assessment / Plan
Assessment / Plan
CT a/p
8.6 x 4.8 x 5.8 cm Fusiform distal abdominal aortic aneurysm. Bilateral aneurysmal dilatation of the common iliac arteries, right greater than left.
Complete occlusion of the LEFT common iliac artery and external iliac artery as well as the left internal iliac artery. Short segment reconstitution of left common femoral artery. Otherwise occlusion of the entire left superficial femoral artery and
most of the popliteal artery. Questionable minimal proximal contrast enhancement of the trifurcation vessels within the calf. However, no distal runoff.
Moderate to high-grade focal stenosis of the proximal RIGHT external iliac artery. Mild aneurysmal dilatation of the proximal right superficial femoral artery. Occlusive thrombus throughout the entire right superficial femoral artery. Reconstitution
of the popliteal artery.
Incidental extravascular findings: Advanced emphysematous changes. 1 cm nodule in the right lateral costophrenic angle has increased in size. Recommend follow-up PET/CT.
Heterogeneous enhancement of the liver which may related to phase of enhancement. It would be difficult to exclude the possibility of diffuse parenchymal process, such as fatty infiltration or fibrotic changes.

1. 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
Large fusiform distal abdominal aortic aneurysm
Bilateral iliac artery aneurysm
-Patient underwent right to left femoral-femoral bypass using PTFE graft
-Postoperatively patient is monitored in ICU
-Patient was intubated as part of the OR, was able to be extubated in the morning
-Patient to be continued on heparin drip, continue per vascular surgery recommendation
2. History of recent venous thromboembolism
-Patient not been compliant with Eliquis per family
-Will be resumed back on Eliquis once off of heparin drip
3. Right upper lobe spiculated pulmonary nodule
-Noted on CT chest April 14, follow-up PET scan was recommended that the time
-Will require follow-up with pulmonology in office
4. Advanced COPD
Chronic hypoxic respiratory failure
-Patient uses oxygen through nasal cannula at baseline
-No signs of exacerbation
-continue nebulizer therapy
5. Essential hypertension
-Postoperatively patient was requiring vasopressor support,
-Resume blood pressure medications slowly as blood pressure allows
Orthostatic hypotension
T12 vertebral compression fracture
History of renal calculi
Full code
DVT prophylaxis�heparin drip
Total critical care time 43mins . Total critical care time documented does not include time spent on separately billed procedures or the services of residents, students, nurses or physician assistants. I personally saw and examined the patient. I
have reviewed all diagnostic interpretations and treatment plans as written. I was present for the [place] portions of any procedures performed and the inclusive time noted in any critical care statement. Critical care time includes patient management
by me, time spent at the patients bedside, time to review lab and imaging results, discussing patient care, documentation in the medical record, and time spent with the family or caregiver.
Anticipated Discharge: > 48 hours
Subjective/Interval History
-
Date of Service: August 13, 2024
Patient having back pain
left leg pain is better
denies chest pain/sob/abd pain/nausea
on o2 through NC
on heparin drip
Objective Data
-
Labs:
Laboratory Results
08/13/24 08/13/24
03:21 08:31
WBC 10.5
Hgb 11.4 L
Hct 33.5 L
Plt Count 260
PT 17.8 H
INR 1.41
APTT 98.5 H
HCO3 24.3
Sodium 141
Potassium 4.9
Chloride 107
Carbon Dioxide 20 L
BUN 35 H
Creatinine 0.9
Glucose 118 H
Calcium 8.7
Total Bilirubin 0.6
AST 28
ALT 17
Alkaline Phosphatase 104
Vital Signs:
Vital Signs
Temp Pulse Resp BP Pulse Ox
98.2 F 104 19 128/79 99
08/13/24 11:50 08/13/24 10:15 08/13/24 10:15 08/13/24 10:07 08/13/24 10:15
I&O
08/12/24 08/13/24 08/14/24
06:59 06:59 06:59
Intake Total 1125.7 / 1229.4 693.1 / 693.1
Output Total 615 / 615 190 / 190
Balance 510.7 / 614.4 503.1 / 503.1
Review of Systems
-
Respiratory: Reports No Symptoms
Cardiac: Reports No Symptoms
Abdomen/GI: Reports No Symptoms
Physical Exam
-
General: Comfortable and Cachectic
HEENT: Oxygen
Respiratory: Clear to Auscultation and Other (Kyphotic spine)
Cardiac: Regular Rhythm and S1/S2; Negative Murmur or Rub
GI: Soft, Nontender and Nondistended
Genito-urinary: Other (Both inguinal area CLINT drain)
Musculoskeletal: Other (bilateral doppler+ve DP/PT pulse)
Neuro: Awake, Alert, Oriented, No Motor Deficits and Nonfocal/Grossly Intact
Psych: Calm
[2024-08-13 15:28] LABS: APTT 78.8 Sec (23.4-35.0)
--- NOTE | 2024-08-13 16:00 | PTCARENOTE ---
remains in recliner. voided as noted. small incont on covidien pad under pt, stood to change. worked with PT/OT. no pain. picot dressings maintained. heparin gtt as noted, increased. PTT resulted, no call per parameters.
--- NOTE | 2024-08-13 20:00 | PTCARENOTE ---
rec`d pt AAO3 OOB to chair. pulses checked with previous shift nurse. p/t and d/p pulses found via doppler. vascular checks continued. ST on monitor. hr low 100s. +2 lower extrem edema. pt educated on keeping legs elevated to reduce swelling.
herparin gtt continued. 2L NC. POx 99%. diminished lung sounds bilaterally. reg diet but has minimal appetite. ensure given to pt. pt uses urinal. bilateral groin CLINT drains with minimal scant drainage. call hicks in reach, safe environment
maintained.
[2024-08-13 22:48] LABS: APTT 151.1 Sec (23.4-35.0)
[2024-08-14] VITALS (16 sets, daily range): BP systolic 90–149; BP diastolic 64–101; PULSE 130
--- NOTE | 2024-08-14 | PTCARENOTE ---
pt reassessed. no changes in pt assessment. call hicks in reach.
--- NOTE | 2024-08-14 04:52 | PTCARENOTE ---
pt reassessed. no changes in pt assessment. call hicks in reach.
[2024-08-14 06:01] LABS: Hematocrit 33.6 % (39.0-52.0); Hemoglobin 10.9 g/dL (13.0-18.0); Mean Corp Hgb Conc. 32.4 g/dL (33.0-37.0); Mean Corpuscular Hgb 31.4 pg (27.0-31.0); Mean Corpuscular Volume 96.8 fL (80.0-94.0); Mean Platelet Volume 10.9 fL (7.4-10.4); Platelet Count 226 10^3/uL (130-400); Red Blood Cell Count 3.47 10^6/uL (4.70-6.10); Red Cell Dist. Width 13.5 % (11.5-14.5); White Blood Cell Count 15.6 10^3/uL (4.8-10.8)
[2024-08-14 06:10] LABS: APTT 98.8 Sec (23.4-35.0)
[2024-08-14 06:26] LABS: Blood Urea Nitrogen 40 mg/dl (9-20); Calcium 8.7 mg/dl (8.4-10.2); Carbon Dioxide 26 mmol/L (22-30); Chloride 108 mmol/L (98-107); Estimated Creatinine Clearance 44 ml/min; Glucose 77 mg/dl (70-99); Potassium 5.1 mmol/L (3.5-5.1); Sodium 143 mmol/L (135-145); eGFR > 60.00
--- NOTE | 2024-08-14 07:34 | W.PN.INTV ---
Today's Communication / Plan
Recommendations
Neurovascular checks
Anticoagulation
Increase activity
Transfer out of ICU-call pulmonary if respiratory issues arise
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
Assessment
-
74-year-old male former smoker with advanced COPD on home oxygen and recent venous thromboembolic disease, hypertension, orthostatic hypotension, vertebral compression fracture, renal calculi presented with left leg pain and numbness found to have
significant thrombosis of the entire left iliac system and underwent femoral to femoral bypass-pay clerk consulted for postoperative ventilator/critical care management 08/13/2024.
Acute left lower extremity limb ischemia
Status post right to left femoral-femoral bypass using 8 mm ringed reinforced PTFE graft-Dr. Marroquin 08/12/2024
Mild geudnd-acgendyape-betiegegtl 11.4
Ventilator dependent respiratory failure postop
Intubated 08/12/2024
Extubated 08/13/2024
Mild hyperglycemia
Multiple pulmonary nodules-possibly increasing in size-patient followed by [facility]-he reports 2 recent PET scans, lung biopsy, and repetitive CTs of the chest
Conditions present prior to admission:
Recent hospitalization 04/03/2023-COPD exacerbation and right upper lobe spiculated mass
COPD-details unclear-on home oxygen.
ABG110/13/2019 4-40 /7 0.37-no obvious CO2 retention
Right upper lobe spiculated lung mass-known for some time--reportedly followed by [facility] with recent PET scans, he reports biopsy, and multiple CTs-records not available
Recent pulmonary embolism.
Hypertension.
Orthostatic hypotension.
T12 vertebral compression fracture.
Renal calculi.
AAA.
PAD.
Plan
Hemodynamically and neurovascularly intact
Tolerated extubation
Nebulizers
Aspiration precaution
Incentive spirometry
Neuro and vascular checks per protocol
Vascular surgery following-correspondence and operative notes reviewed
Phenylephrine weaned
Monitor blood sugar
Insulin supplementation as needed
DVT prophylaxis-on heparin drip
Early nutrition
Early mobilization
Patient is stable and can be transferred out of ICU-call pulmonary if respiratory issues arise
Will require close outpatient pulmonary [id number]-[id number] multiple suspicious pulmonary nodules/masses, advanced emphysema-he reports following with [facility]-strongly urged to follow-up as he has enlarging pulmonary nodules-he is aware and
will do so
He also inquired about pulmonary valves-I suggested he talk to his local paint roller winder about this as well, Dr. Garland did describe benefits and risks and even some inclusion criteria with him
Reviewed the patient's pertinent medical records including radiographs, microbiology, laboratory evaluations, and discussion with primary team, consultants, pharmacy, nutrition, physical therapy, case management, charge nurse, critical care
nursing, and respiratory therapy.
Diagnostic data:
Chest x-ray 04/03/2023-COPD changes, trace bilateral pleural effusions
Chest x-ray 08/12/2024-endotracheal tube in place, right upper lobe spiculated nodular opacification concerning for cancer
CT chest 04/04/23-18 mm spiculated right upper lobe mass, COPD changes, 5 mm probable benign pulmonary nodule left lower lobe, no pulm embolism, 80% compression fracture T12, multiple bilateral nonobstructing renal calculi, hepatic cysts
CT abdomen 08/12/24-8.6 cm fusiform distal AAA, bilateral aneurysmal dilation of the common iliac arteries, complete occlusion of the left common iliac artery and external iliac artery as well as the left internal iliac artery, moderate to
high-grade focal stenosis proximal right external iliac artery, advanced emphysematous changes and a 1 cm right lateral costophrenic angle nodule which is increased in size
Left lower extremity ultrasound 08/12/2024-no evidence for left lower extremity DVT
Echocardiogram 07/25/2024-EF 60-65%, no significant mitral valve abnormalities, PA systolic 35-40
Subjective Dataa
Subjective Data
Date of Service:
Date of Service: August 14, 2024
Chief Complaint: Personal Shopper Follow Up and Pulmonary Follow Up
Subjective:
No complaints of worsening shortness of breath, chest pain, productive cough, abdominal pain or leg pain
Review of Systems
General: Other ( per HPI)
Objective Data
Data Reviewed
Vital Signs / I&O / Oxygen:
Vital Signs
Temp Pulse Resp BP Pulse Ox
97.8 F 101 26 115/75 99
08/14/24 03:13 08/14/24 05:30 08/14/24 05:30 08/14/24 05:00 08/14/24 05:30
Intake and Output
08/13/24 08/14/24 08/15/24
06:59 06:59 06:59
Intake Total 1125.7 / 1229.4 1813.1 / 1813.1
Output Total 615 / 615 940 / 940
Balance 510.7 / 614.4 873.1 / 873.1
SaO2 [CPAP/PSV] 96
SaO2 [A/C] 100
SaO2 99
Nasal Cannula flow liters per 2.5
minute
Physical Exam
General: Respiratory Distress (n) and Comfortable
HEENT: Normocephalic, Anicteric and Moist Mucous Membranes
Cardiovascular: Regular Rhythm
Respiratory: Wheeze (n), Crackles, Rhonchi (n), Non-Labored Respirations, Accessory Resp Muscle Use (n) and Stridor (n)
GI: Soft, Non Distended and Non Tender
Neurology: Awake, Alert and No Motor Deficits
Skin: Warm, Good Color, Cyanosis (n), Jaundice (n) and Rash
Labs/Micro/Reports
Lab Data
08/14/24 05:34
08/14/24 05:34
Laboratory Results
08/13/24 08/13/24 08/13/24
08:31 15:05 22:24
APTT 78.8 H 151.1 H*
pH 7.37
pCO2 42
pO2 70 L
HCO3 24.3
O2 Delivery Level
08/14/24
05:34
APTT 98.8 H
pH
pCO2
pO2
HCO3
O2 Delivery Level
[2024-08-14] MEDS: LOW STRENGTH ASPIRIN 81 MG PO (07:56)
--- NOTE | 2024-08-14 08:00 | PTCARENOTE ---
recd 0715 handoff in room, awake, waving, alert. VS noted, recd on 2l nc. anxious at times. notes appetite poor but ordered and picking at breakfast. drinking nutrition shake. heparin infusing. reviewed plan of care and expectations. occas
tripodding but no distress.
--- NOTE | 2024-08-14 08:46 | PN.CDI ---
CDI
- -
CDI:
Physician Documentation Request
Admit Date: 08/12/24 19:15
Dear Doctor Panda,
Clinical Indicators:
Patient admitted with iliac artery occlusion; PMH includes COPD.
08/13 note/assessment: Subcutaneous Loss: Orbital Severe
Muscle Loss: Clavicle, Temporal Severe
-'Pt meets criteria for severe protein calorie malnutrition of chronic illness with
prolonged inadequate po intake <75% for >1 month, severe loss subcutanous fat and
muscle.'
Based on the above information and your assessment, which of the following most accurately represents the patient's nutritional status?
Severe Protein Calorie Malnutrition
Other (please specify)
[place] Criteria ([facility] Hospitalist 2017)
2 or more criteria must be present for either
non severe or severe malnutrition
Note that the criteria differs related to the
presence of an acute or chronic illness
Acute Illness Chronic Illness
Energy Intake Non Severe: <75% for >7 days Non Severe: <75% for >1 month
Severe: <50% for >5 days Severe: <75% for >1 month
Weight Loss Non Severe: 1-2% over 1 week Non Severe: 5% over 1 month
5% over 1 month 7.5% over 3 months
7.5% over 3 months 10% over 6 months
1 year N/A 20% over 1 year
Severe: >2% over 1 week Severe: >5% over 1 month
>5% over 1 month >7.5% over 3 months
>7.5% over 3 months >10% over 6 months
1 year N/A >20% over 1 year
Body Fat Non Severe: Mild Decrease Non Severe: Mild Loss
Severe: Moderate Decrease Severe: Severe Loss
Muscle Mass Non Severe: Mild Decrease Non Severe: Mild Loss
Severe: Moderate Decrease Severe: Severe Loss
Fluid Accumulation Non Severe: Mild Accumulation Non Severe: Mild Accumulation
Severe: Moderate to severe Severe: Moderate to severe
accumulation accumulation
Reduced Bookkeeping Clerks Supervisor Strength Non Severe: N/A Non Severe: N/A
Severe: Measurably reduced Severe: Measurably reduced
Additional criteria that can be used to Determine if Mild or Moderate Malnutrition (Merck Manual 2018)
Mild Moderate Severe
Albumin gm/dl <3.0 gm/dl <2.5 gm/dl <2.0 gm/dl
Pre Albumin mg/dl <15 gm/dl <10 mg/dl <5.0 mg/dl
BMI <18.5 <17 <16
Use of terms such as suspected, likely, concern for, or probable (associated with a specific diagnosis that is being evaluated, monitored, or treated as if it exists) are acceptable and can be coded in the inpatient setting, when documented at the
time of discharge.
Thank you,
Lori Ruggiero RN BSN
CDI Specialist
available via tiger text
Please use your independent medical judgment in providing your response.
--- NOTE | 2024-08-14 09:34 | W.PN.VS ---
Addendum entered and electronically signed by SARA Yip 08/14/24 10:49:
CLINT dressing changed by this provider, EDWIN. Patient will follow up as scheduled per patient request with Dr. Jaci Myles for aneurysm repair options.
Original Note:
Today's Communication / Plan
-
See below.
Assessment/Plan
-
POD 2 Fem-fem bypass
Plan:
-D/c heparin infusion and transition to home PO Eliquis 5mg daily
-PT
-OOB/chair with progression to ambulation as tolerated
-CLINT instructions and follow up appointment left on discharge instructions
- We will sign off please call with questions and concerns
Subjective Data
-
Date of Service: August 14, 2024
Patient seen and examined at bedside, offers no complaints. Reports eagerness for discharge. Denies nausea, vomiting, fever, and chills.
Objective Data
-
Vital Signs
Temp Pulse Resp BP Pulse Ox
97.9 F 101 26 115/75 99
08/14/24 07:38 08/14/24 05:30 08/14/24 05:30 08/14/24 05:00 08/14/24 05:30
Intake and Output
08/13/24 08/14/24 08/15/24
06:59 06:59 06:59
Intake Total 1125.7 / 1229.4 1813.1 / 1819.1 138 / 138
Output Total 615 / 615 940 / 1040 200 / 200
Balance 510.7 / 614.4 873.1 / 779.1 -62 / -62
Intake:
Oral fluids 600 / 600 120 / 120
IV fluids (Total) 1125.7 / 1229.4 1213.1 / 1219.1 18 / 18
Nss 1,000 ml @ 80 mls/hr IV . 880 / 960 1040 / 1040
[id number] [facility] Rx#:[id number]
heparin 40 / 45 145 / 151 18 18
jase 132 / 144 18
prop 73.7 / 80.4 10.1 / 10.1
Output:
Urine, Marroquin 615 / 615 190 / 190
Urine, Voided 750 / 850 200 / 200
Lab Results
08/14/24 05:34
08/14/24 05:34
Calcium 8.7 mg/dl (8.4-10.2) 08/14/24 05:34
Total Bilirubin 0.6 mg/dl (0.2-1.3) 08/13/24 03:21
AST 28 U/L (17-59) 08/13/24 03:21
ALT 17 U/L (0-50) 08/13/24 03:21
Alkaline Phosphatase 104 U/L (38-126) 08/13/24 03:21
Total Protein 6.2 g/dl (6.3-8.2) L 08/13/24 03:21
Albumin 3.6 g/dl (3.5-5.0) 08/13/24 03:21
Physical Exam
-
Awake, alert
Mild tachycardia at times HR ranging 90-low 100s
On 3L NC
Abd soft, non tender
Groin sites with PICOs intact, scant drainage, flat, soft
Doppler left PT and right DP, feet warm and pink
[2024-08-14] MEDS: ELIQUIS 5 MG PO ×2 (10:25→19:42)
--- NOTE | 2024-08-14 12:00 | PTCARENOTE ---
tsf tele orders noted. pt with c/o 'all these wires', encouraged to move about, reorganized things in chair. back to bed, vascular changed CLINT dressings, tolerated.
--- NOTE | 2024-08-14 12:04 | CM ---
Addendum entered by Salazar Hawk 08/14/24 15:15:
AURELIA just spoke to [facility] access director and she stated that pt is accepted for admission to [facility] as early as Saturday.
[facility]
Accepting physician: David France
Pt will need an auth from [employer] - [place]: phone: [phone], fax: [phone]
D/C plan: [facility] on Saturday08/17/24.
CM will follow to assist pt with discharge to [facility] on Saturday08/17/24
Addendum entered by Salazar Hawk 08/14/24 13:21:
CM spoke to [facility] access director Lizeth and she requested updated PT and OT evaluations.
PT and OT evaluations faxed to: [phone].
Awaiting for determination.
Original Note:
CM following re: discharge planning.
Reviewed pt's chart, met with pt.
According to pt probably will be ready for discharge this weekend. Pt is aware, expressed his agreement and pt expressed his agreement and desire to go only to [facility]. Pt stated he was there before, liked there very much and
he would go only to [facility].
[facility] did not respond on careport referral yet. CM spoke to [facility] access director Lizeth [phone] and she stated they do not have access to careport, will review pt's case and will come
back to me within an hour. Per Lizeth, they are out of network with pt's insurance but they accepted the pt before and she will check with her team regarding insurance issue. per Lizeth they possibly will have a bed available on
Saturday/probably Saturday.
D/C plan: [facility]. Awaiting for determination. CM will initiate an auth when confirmed that pt is accepted for admission to [facility].
CM will follow with discharge plan updates as hospitalization progresses
[2024-08-14] MEDS: NON-FORMULARY ITEM 1 UNIT INH (12:33)
--- NOTE | 2024-08-14 14:04 | W.PN.HOSP.TC ---
Addendum entered and electronically signed by Sloan Mosqueda MD 08/17/24 17:39:
Add on to diagnosis list
Severe Protein Calorie Malnutrition
Original Note:
Today's Communication/Plan
-
Transition to Eliquis therapy
Transfer to telemetry
Discharge planning for SNF rehab
Assessment / Plan
Assessment / Plan
CT a/p
8.6 x 4.8 x 5.8 cm Fusiform distal abdominal aortic aneurysm. Bilateral aneurysmal dilatation of the common iliac arteries, right greater than left.
Complete occlusion of the LEFT common iliac artery and external iliac artery as well as the left internal iliac artery. Short segment reconstitution of left common femoral artery. Otherwise occlusion of the entire left superficial femoral artery and
most of the popliteal artery. Questionable minimal proximal contrast enhancement of the trifurcation vessels within the calf. However, no distal runoff.
Moderate to high-grade focal stenosis of the proximal RIGHT external iliac artery. Mild aneurysmal dilatation of the proximal right superficial femoral artery. Occlusive thrombus throughout the entire right superficial femoral artery. Reconstitution
of the popliteal artery.
Incidental extravascular findings: Advanced emphysematous changes. 1 cm nodule in the right lateral costophrenic angle has increased in size. Recommend follow-up PET/CT.
Heterogeneous enhancement of the liver which may related to phase of enhancement. It would be difficult to exclude the possibility of diffuse parenchymal process, such as fatty infiltration or fibrotic changes.

1. 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
Large fusiform distal abdominal aortic aneurysm
Bilateral iliac artery aneurysm
-Patient underwent right to left femoral-femoral bypass using PTFE graft
-Patient was intubated as part of the OR, was able to be extubated after few hours
-Patient heparin drip will be transitioned to Eliquis from today
-Vascular surgery cleared patient for discharge from their perspective
-Patient large distal fusiform AAA is not amenable to surgery/high risk procedure. [facility] sx also recommended against sx in past.
2. History of recent venous thromboembolism
-Patient not been compliant with Eliquis per family
-Transition patient back on Eliquis
3. Right upper lobe spiculated pulmonary nodule
-Noted on CT chest April 14, follow-up PET scan was recommended that the time
-Will require follow-up with pulmonology in office
4. Advanced COPD
Chronic hypoxic respiratory failure
-Patient uses oxygen through nasal cannula at baseline
-No signs of exacerbation
-continue nebulizer therapy
5. Essential hypertension
-Postoperatively patient was requiring vasopressor support,
-Resume blood pressure medications slowly as blood pressure allows
6. Leukocytosis without fever
-Reactive in nature, monitor off antibiotic
Orthostatic hypotension
T12 vertebral compression fracture
History of renal calculi
Full code
DVT prophylaxis�Eliquis
Anticipated Discharge: > 48 hours
Subjective/Interval History
-
Date of Service: August 14, 2024
Complaining bilateral inguinal discomfort
Remains tachycardic, no palpitations/chest discomfort
No abdominal pain/nausea/vomiting
Objective Data
-
Labs:
Laboratory Results
08/14/24 08/14/24
05:34 12:00
WBC 15.6 H
Hgb 10.9 L
Hct 33.6 L
Plt Count 226
APTT 98.8 H Cancelled
Sodium 143
Potassium 5.1
Chloride 108 H
Carbon Dioxide 26
BUN 40 H
Creatinine 1.0
Glucose 77
Calcium 8.7
Vital Signs:
Vital Signs
Temp Pulse Resp BP Pulse Ox
97.9 F 115 20 101/64 99
08/14/24 07:38 08/14/24 13:00 08/14/24 13:00 08/14/24 12:33 08/14/24 12:45
I&O
08/13/24 08/14/24 08/15/24
06:59 06:59 06:59
Intake Total 1125.7 / 1229.4 1813.1 / 1819.1 738 / 738
Output Total 615 / 615 940 / 1040 425 / 425
Balance 510.7 / 614.4 873.1 / 779.1 313 / 313
Review of Systems
-
Respiratory: Reports No Symptoms
Cardiac: Reports No Symptoms
Abdomen/GI: Reports No Symptoms
Physical Exam
-
General: Comfortable and Cachectic
HEENT: Oxygen
Respiratory: Clear to Auscultation and Other (Kyphotic spine)
Cardiac: Regular Rhythm, S1/S2 and Tachycardic; Negative Murmur or Rub
GI: Soft, Nontender and Nondistended
Genito-urinary: Other (Both inguinal area CLINT drain)
Musculoskeletal: Other (bilateral doppler+ve DP/PT pulse)
Neuro: Awake, Alert, Oriented, No Motor Deficits and Nonfocal/Grossly Intact
Psych: Calm
--- NOTE | 2024-08-14 16:00 | TRANSFER ---
transferred via [facility] and family pushing belongings on cart to new room 2135. anxious. in good spirits. updates in room by Dr. Mosqueda, case management with family.
--- NOTE | 2024-08-14 16:26 | PTCARENOTE ---
Pt. transferred from ICU. VSS. Patient oriented to floor. Family at bedside. Call hicks within reach.
--- NOTE | 2024-08-14 20:00 | PTCARENOTE ---
Patient is turning himself
[2024-08-15] MEDS: NON-FORMULARY ITEM 2 UNIT INH (00:09)
[2024-08-15 04:00] VITALS: BP 120/76
[2024-08-15 06:05] LABS: Hematocrit 33.5 % (39.0-52.0); Hemoglobin 11.1 g/dL (13.0-18.0); Mean Corp Hgb Conc. 33.1 g/dL (33.0-37.0); Mean Corpuscular Hgb 31.3 pg (27.0-31.0); Mean Corpuscular Volume 94.4 fL (80.0-94.0); Mean Platelet Volume 11.3 fL (7.4-10.4); Platelet Count 210 10^3/uL (130-400); Red Blood Cell Count 3.55 10^6/uL (4.70-6.10); Red Cell Dist. Width 13.5 % (11.5-14.5); White Blood Cell Count 15.8 10^3/uL (4.8-10.8)
[2024-08-15 06:19] LABS: Blood Urea Nitrogen 37 mg/dl (9-20); Carbon Dioxide 25 mmol/L (22-30); Chloride 108 mmol/L (98-107); Estimated Creatinine Clearance 55 ml/min; Glucose 90 mg/dl (70-99); Potassium 4.8 mmol/L (3.5-5.1); Sodium 146 mmol/L (135-145); eGFR > 60.00
[2024-08-15 07:00] VITALS: BP 127/68
--- NOTE | 2024-08-15 08:03 | W.PN.HOSP.TC ---
Today's Communication/Plan
-
resume Amlodipine with hold parameters
Assessment / Plan
Assessment / Plan
08/12/24 CT a/p
8.6 x 4.8 x 5.8 cm Fusiform distal abdominal aortic aneurysm. Bilateral aneurysmal dilatation of the common iliac arteries, right greater than left.
Complete occlusion of the LEFT common iliac artery and external iliac artery as well as the left internal iliac artery. Short segment reconstitution of left common femoral artery. Otherwise occlusion of the entire left superficial femoral artery and
most of the popliteal artery. Questionable minimal proximal contrast enhancement of the trifurcation vessels within the calf. However, no distal runoff.
Moderate to high-grade focal stenosis of the proximal RIGHT external iliac artery. Mild aneurysmal dilatation of the proximal right superficial femoral artery. Occlusive thrombus throughout the entire right superficial femoral artery. Reconstitution
of the popliteal artery.
Incidental extravascular findings: Advanced emphysematous changes. 1 cm nodule in the right lateral costophrenic angle has increased in size. Recommend follow-up PET/CT.
Heterogeneous enhancement of the liver which may related to phase of enhancement. It would be difficult to exclude the possibility of diffuse parenchymal process, such as fatty infiltration or fibrotic changes.

1. 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
Large fusiform distal abdominal aortic aneurysm
Bilateral iliac artery aneurysm
-Patient underwent right to left femoral-femoral bypass using PTFE graft on 08/13
-Patient was intubated as part of the OR, was able to be extubated after few hours
-Patient heparin drip transitioned to Eliquis 5 mg bid
-Vascular surgery cleared patient for discharge from their perspective
-Patient large distal fusiform AAA is not amenable to surgery/high risk procedure. [facility] vasc sx also recommended against sx in past.
Patient states he is to follow up with Vasc Surg at [place], does not believe he has an appt and not sure when he is follow up
2. History of recent venous thromboembolism
-Patient not been compliant with Eliquis per family
-Transition patient back on Eliquis
3. Right upper lobe spiculated pulmonary nodule
-Noted on CT chest April 14, follow-up PET scan was recommended that the time
-Will require follow-up with pulmonology in office. Pt goes to [facility] at [place]
4. Advanced COPD
Chronic hypoxic respiratory failure
-Patient uses oxygen through nasal cannula at baseline
-No signs of exacerbation
-continue nebulizer therapy
5. Essential hypertension
-Postoperatively patient was requiring vasopressor support,
-Resume blood pressure medications slowly as blood pressure allows
BP now 120/76, was on Amlodipine 10 mg qd and Lisinopril 40, will resume Amlodipine at reduced dose
6. Leukocytosis without fever
-Reactive in nature, monitor off antibiotic
15.6-->15.8k
Orthostatic hypotension
T12 vertebral compression fracture
History of renal calculi
Full code
DVT prophylaxis�Eliquis
Anticipated Discharge: > 48 hours
Subjective/Interval History
-
Date of Service: August 15, 2024
Awake, alert,conversant. Denies currently sob
Objective Data
-
Labs:
Laboratory Results
08/15/24
05:03
WBC 15.8 H
Hgb 11.1 L
Hct 33.5 L
Plt Count 210
Sodium 146 H
Potassium 4.8
Chloride 108 H
Carbon Dioxide 25
BUN 37 H
Creatinine 0.8
Glucose 90
Calcium 9.0
Vital Signs:
Vital Signs
Temp Pulse Resp BP Pulse Ox
98.6 F 115 16 120/76 97
11/23/24 04:00 08/15/24 04:00 08/15/24 04:00 08/15/24 04:00 08/15/24 04:00
I&O
08/14/24 08/15/24 08/16/24
06:59 06:59 06:59
Intake Total 1813.1 / 1819.1 978 / 978
Output Total 940 / 1040 925 / 925
Balance 873.1 / 779.1 53 / 53
Review of Systems
-
History Source: Patient
Constitutional: Denies Fever
EENT: Reports No Symptoms Reported
Respiratory: Reports Trouble Breathing (chronic, pt feels he is at his baseline)
Cardiac: Reports No Symptoms
Abdomen/GI: Reports No Symptoms
Musculoskeletal: Reports No Symptoms (denies leg pain)
Physical Exam
-
General: Well Developed, Well Nourished, No Apparent Distress and Cachectic (supraclavicular muscle wasting)
HEENT: Normocephalic, Atraumatic and Moist Mucous Membranes
Respiratory: Other (COPD changes, no active wheeze, prolonged expiratory phase on forced expiration with pursed lip)
Cardiac: Regular Rhythm and S1/S2
GI: Soft, Nontender and Nondistended
Musculoskeletal: No Clubbing, No Cyanosis, No Edema and Other (left foot is warm)
Neuro: Awake, Alert and Oriented
[2024-08-15] MEDS: SPIRIVA RESPIMAT 2.5 MCG 2 PUFF INH (08:33)
[2024-08-15] MEDS: SYMBICORT 160/4.5 MCG INHALER 2 PUFF INH ×2 (08:34→19:14)
[2024-08-15] MEDS: LOW STRENGTH ASPIRIN 81 MG PO (08:36)
[2024-08-15] MEDS: LASIX 20 MG PO (08:36)
[2024-08-15] MEDS: ELIQUIS 5 MG PO ×2 (08:36→19:24)
[2024-08-15] MEDS: NORVASC 2.5 MG PO (08:49)
--- NOTE | 2024-08-15 10:09 | CM ---
Chart reviewed.
Pt identified [facility] for SNF at d/c
SNF able to accept pt on Saturday
Initiated [facility] auth via phone. Spoke w/ Yael to initiate auth
Pending ref # [id number]
Clinicals faxed to [phone]
Per Yael, auth determination can take 24-48 hours.
CM to cont to follow pending auth determination
Plan: [facility]; pending auth approval
[2024-08-15 11:00] VITALS: BP 109/74
[2024-08-15 15:00] VITALS: BP 100/62
[2024-08-15 19:28] VITALS: BP 121/93
[2024-08-15 23:09] VITALS: BP 103/63
[2024-08-16 03:40] VITALS: BP 91/65
[2024-08-16 06:13] LABS: Hematocrit 33.2 % (39.0-52.0); Hemoglobin 10.8 g/dL (13.0-18.0); Mean Corp Hgb Conc. 32.5 g/dL (33.0-37.0); Mean Corpuscular Hgb 31.9 pg (27.0-31.0); Mean Corpuscular Volume 97.9 fL (80.0-94.0); Mean Platelet Volume 11.5 fL (7.4-10.4); Platelet Count 230 10^3/uL (130-400); Red Blood Cell Count 3.39 10^6/uL (4.70-6.10); Red Cell Dist. Width 13.6 % (11.5-14.5); White Blood Cell Count 11.7 10^3/uL (4.8-10.8)
[2024-08-16 06:52] LABS: Blood Urea Nitrogen 34 mg/dl (9-20); Calcium 8.9 mg/dl (8.4-10.2); Carbon Dioxide 32 mmol/L (22-30); Chloride 104 mmol/L (98-107); Estimated Creatinine Clearance 49 ml/min; Glucose 98 mg/dl (70-99); Potassium 4.5 mmol/L (3.5-5.1); Sodium 143 mmol/L (135-145); eGFR > 60.00
[2024-08-16] MEDS: SYMBICORT 160/4.5 MCG INHALER 2 PUFF INH ×2 (07:24→20:42)
[2024-08-16] MEDS: SPIRIVA RESPIMAT 2.5 MCG 2 PUFF INH (07:24)
[2024-08-16] MEDS: NON-FORMULARY ITEM INH (07:24)
[2024-08-16 07:25] VITALS: BP 114/91
[2024-08-16] MEDS: LASIX 20 MG PO (08:01)
[2024-08-16] MEDS: LOW STRENGTH ASPIRIN 81 MG PO (08:01)
[2024-08-16] MEDS: NORVASC 2.5 MG PO (08:01)
[2024-08-16] MEDS: ELIQUIS 5 MG PO ×2 (08:01→19:44)
--- NOTE | 2024-08-16 09:23 | W.PN.HOSP.TC ---
Today's Communication/Plan
-
continue Eliquis
will need follow up of Pulm nodule and AAA post discharge
Assessment / Plan
Assessment / Plan
08/12/24 CT a/p
8.6 x 4.8 x 5.8 cm Fusiform distal abdominal aortic aneurysm. Bilateral aneurysmal dilatation of the common iliac arteries, right greater than left.
Complete occlusion of the LEFT common iliac artery and external iliac artery as well as the left internal iliac artery. Short segment reconstitution of left common femoral artery. Otherwise occlusion of the entire left superficial femoral artery and
most of the popliteal artery. Questionable minimal proximal contrast enhancement of the trifurcation vessels within the calf. However, no distal runoff.
Moderate to high-grade focal stenosis of the proximal RIGHT external iliac artery. Mild aneurysmal dilatation of the proximal right superficial femoral artery. Occlusive thrombus throughout the entire right superficial femoral artery. Reconstitution
of the popliteal artery.
Incidental extravascular findings: Advanced emphysematous changes. 1 cm nodule in the right lateral costophrenic angle has increased in size. Recommend follow-up PET/CT.
Heterogeneous enhancement of the liver which may related to phase of enhancement. It would be difficult to exclude the possibility of diffuse parenchymal process, such as fatty infiltration or fibrotic changes.

1. 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
Large fusiform distal abdominal aortic aneurysm
Bilateral iliac artery aneurysm
-Patient underwent right to left femoral-femoral bypass using PTFE graft on 08/13
-Patient was intubated as part of the OR, was able to be extubated after few hours
-Patient heparin drip transitioned to Eliquis 5 mg bid
-Vascular surgery cleared patient for discharge from their perspective
-Patient large distal fusiform AAA is not amenable to surgery/high risk procedure. [facility] [place]x (Pt follows with Dr. Jaci Myles at [facility]) also recommended against sx in past.
Patient states he is to follow up with Vasc Surg at [place], as per sister, pt has appt with Dr. Myles Sep 07, at [facility].
2. History of recent venous thromboembolism
-Patient not been compliant with Eliquis per family. Importance of compliance reviewed with pt
-Transition patient back on Eliquis
3. Right upper lobe spiculated pulmonary nodule
-Noted on CT chest April 14, follow-up PET scan was recommended that the time
-Will require follow-up with pulmonology in office. Pt goes to [facility] at [place]
4. Advanced COPD
Chronic hypoxic respiratory failure
-Patient uses oxygen through nasal cannula at baseline
-No signs of exacerbation
-continue nebulizer therapy
5. Essential hypertension
-Postoperatively patient was requiring vasopressor support,
-Resume blood pressure medications slowly as blood pressure allows
BP now 120/76-->114/71, was on Amlodipine 10 mg qd and Lisinopril 40, will resume Amlodipine at reduced dose, received 2.5 mg on 08/15, on 08/16 will go to 5 mg daily. Will continue to hold Lisinopril
6. Leukocytosis without fever
-Reactive in nature, monitor off antibiotic
15.6-->15.8-->11.7k
Orthostatic hypotension
T12 vertebral compression fracture
History of renal calculi
Pt usually lives with sister and b-i-l, they will be out of area visiting their son for the next 10 days and as such, plan is [place] [place], which would be optimal from medical aspect as well. Hopefully all
arrangements to be completed next 24 hrs
Call placed and discussed with pt's sister, (DEZ) Genny 08/16. Extensive review
total time 60 minutes
Full code
DVT prophylaxis�Eliquis
Anticipated Discharge: 24 - 48 hours
Subjective/Interval History
-
Date of Service: August 16, 2024
Awake, alert, conversant. Denies SOB
Objective Data
-
Labs:
Laboratory Results
08/16/24
05:19
WBC 11.7 H
Hgb 10.8 L
Hct 33.2 L
Plt Count 230
Sodium 143
Potassium 4.5
Chloride 104
Carbon Dioxide 32 H
BUN 34 H
Creatinine 0.9
Glucose 98
Calcium 8.9
Vital Signs:
Vital Signs
Temp Pulse Resp BP Pulse Ox
97.9 F 107 18 114/91 99
08/16/24 07:25 08/16/24 07:32 08/16/24 07:32 08/16/24 07:25 08/16/24 07:32
I&O
08/15/24 08/16/24 08/17/24
06:59 06:59 06:59
Intake Total 978 / 978 1831 / 1831
Output Total 925 / 925 900 / 900
Balance 53 / 53 931 / 931
Review of Systems
-
History Source: Patient
Constitutional: Denies Fever
EENT: Reports No Symptoms Reported
Respiratory: Reports Trouble Breathing (chronic, pt feels he is at his baseline); Denies Cough
Cardiac: Reports No Symptoms
Abdomen/GI: Reports No Symptoms
Musculoskeletal: Reports No Symptoms (denies leg pain)
Physical Exam
-
General: Well Developed, Well Nourished, No Apparent Distress and Cachectic (supraclavicular muscle wasting)
HEENT: Normocephalic, Atraumatic and Moist Mucous Membranes
Respiratory: Other (COPD changes, no active wheeze, prolonged expiratory phase on forced expiration with pursed lip)
Cardiac: Regular Rhythm and S1/S2
GI: Soft, Nontender and Nondistended
Musculoskeletal: No Clubbing, No Cyanosis, No Edema and Other (left foot is warm)
Neuro: Awake, Alert and Oriented
[2024-08-16 11:05] VITALS: BP 99/63
[2024-08-16 15:30] VITALS: BP 115/73
[2024-08-16 19:35] VITALS: BP 92/55
[2024-08-16 23:30] VITALS: BP 123/71
[2024-08-17] VITALS (7 sets, daily range): BP systolic 108–136; BP diastolic 65–87; PULSE 111; O2SAT 96
[2024-08-17] MEDS: SPIRIVA RESPIMAT 2.5 MCG 2 PUFF INH (07:30)
[2024-08-17] MEDS: SYMBICORT 160/4.5 MCG INHALER 2 PUFF INH ×2 (07:30→20:14)
[2024-08-17] MEDS: LASIX 20 MG PO (08:25)
[2024-08-17] MEDS: ELIQUIS 5 MG PO ×2 (08:25→20:02)
[2024-08-17] MEDS: LOW STRENGTH ASPIRIN 81 MG PO (08:25)
[2024-08-17] MEDS: NORVASC 5 MG PO (08:25)
--- NOTE | 2024-08-17 08:29 | W.PN.HOSP.TC ---
Addendum entered and electronically signed by Kan Watson MD 08/17/24 08:47:
abd examined with nurse, correction rt side of abd is part of the CLINT and the entire CLINT can be removed on 08/18
Original Note:
Today's Communication/Plan
-
recheck labs
Assessment / Plan
Assessment / Plan
08/12/24 CT a/p
8.6 x 4.8 x 5.8 cm Fusiform distal abdominal aortic aneurysm. Bilateral aneurysmal dilatation of the common iliac arteries, right greater than left.
Complete occlusion of the LEFT common iliac artery and external iliac artery as well as the left internal iliac artery. Short segment reconstitution of left common femoral artery. Otherwise occlusion of the entire left superficial femoral artery and
most of the popliteal artery. Questionable minimal proximal contrast enhancement of the trifurcation vessels within the calf. However, no distal runoff.
Moderate to high-grade focal stenosis of the proximal RIGHT external iliac artery. Mild aneurysmal dilatation of the proximal right superficial femoral artery. Occlusive thrombus throughout the entire right superficial femoral artery. Reconstitution
of the popliteal artery.
Incidental extravascular findings: Advanced emphysematous changes. 1 cm nodule in the right lateral costophrenic angle has increased in size. Recommend follow-up PET/CT.
Heterogeneous enhancement of the liver which may related to phase of enhancement. It would be difficult to exclude the possibility of diffuse parenchymal process, such as fatty infiltration or fibrotic changes.

1. 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
Large fusiform distal abdominal aortic aneurysm
Bilateral iliac artery aneurysm
-Patient underwent right to left femoral-femoral bypass using PTFE graft on 08/13
-Patient was intubated as part of the OR, was able to be extubated after few hours
-Patient heparin drip transitioned to Eliquis 5 mg bid
-Vascular surgery cleared patient for discharge from their perspective
-Patient large distal fusiform AAA is not amenable to surgery/high risk procedure. [facility] sx (Pt follows with Dr. Jaci Myles at [facility]) also recommended against sx in past.
Patient states he is to follow up with Vasc Surg at [place], as per sister, pt has appt with Dr. Myles Sep 07, at [facility].
CLINT drain on left side, to be removed 08/18, pt is asking about drain, call placed to Dr. Hansen, he is currently scrubbed and someone will get back to me
2. History of recent venous thromboembolism
-Patient not been compliant with Eliquis per family. Importance of compliance reviewed with pt
-Transition patient back on Eliquis
3. Right upper lobe spiculated pulmonary nodule
-Noted on CT chest April 14, follow-up PET scan was recommended that the time
-Will require follow-up with pulmonology in office. Pt goes to [facility] at [place]
4. Advanced COPD
Chronic hypoxic respiratory failure
-Patient uses oxygen through nasal cannula at baseline
-No signs of exacerbation
-continue nebulizer therapy
5. Essential hypertension
-Postoperatively patient was requiring vasopressor support,
-Resume blood pressure medications slowly as blood pressure allows
BP now 120/76-->114/71, was on Amlodipine 10 mg qd and Lisinopril 40, will resume Amlodipine at reduced dose, received 2.5 mg on 08/15, on 08/16 will go to 5 mg daily. Will continue to hold Lisinopril
6. Leukocytosis without fever
-Reactive in nature, monitor off antibiotic
15.6-->15.8-->11.7k
Orthostatic hypotension
T12 vertebral compression fracture
History of renal calculi
Pt usually lives with sister and b-i-l, they will be out of area visiting their son for the next 10 days and as such, plan is to go [place] [place], which would be optimal from medical aspect as well. Hopefully all
arrangements to be completed next 24 hrs
Call placed and discussed with pt's sister, (DEZ) Genny 08/16. Extensive review
await clarification about drain, recheck labs
potential dc to SNF tomorrow
Full code
DVT prophylaxis�Eliquis
Anticipated Discharge: 24 - 48 hours
Subjective/Interval History
-
Date of Service: August 17, 2024
Awake, alert, asking when the drain can come out
Objective Data
-
Vital Signs:
Vital Signs
Temp Pulse Resp BP Pulse Ox
98.5 F 101 18 136/87 94
08/17/24 03:49 08/17/24 07:42 08/17/24 07:42 08/17/24 03:49 08/17/24 07:42
I&O
08/16/24 08/17/24 08/18/24
06:59 06:59 06:59
Intake Total 1831 / 1831 1260 / 1260
Output Total 900 / 900 1070 / 1070
Balance 931 / 931 190 / 190
Review of Systems
-
History Source: Patient
Constitutional: Denies Fever
EENT: Reports No Symptoms Reported
Respiratory: Reports Trouble Breathing (chronic, pt feels he is at his baseline); Denies Cough
Cardiac: Reports No Symptoms
Abdomen/GI: Reports No Symptoms
Musculoskeletal: Reports No Symptoms (denies leg pain)
Physical Exam
-
General: Well Developed, Well Nourished, No Apparent Distress and Cachectic (supraclavicular muscle wasting)
HEENT: Normocephalic, Atraumatic and Moist Mucous Membranes
Respiratory: Other (COPD changes, no active wheeze, prolonged expiratory phase on forced expiration with pursed lip)
Cardiac: Regular Rhythm and S1/S2
GI: Soft, Nontender, Nondistended and Other (CLINT dressing on left side, drain in place on rt side )
Musculoskeletal: No Clubbing, No Cyanosis, No Edema and Other (left foot is warm)
Neuro: Awake, Alert and Oriented
--- NOTE | 2024-08-17 09:30 | CM ---
Addendum entered by Ann Marie Jewell RN 08/17/24 15:27:
IMM reviewed and placed on chart.
Original Note:
Reviewed the chart notes and spoke with attending. Patient ready for discharge tomorrow.
Auth received from [facility] for 5 days (08/17-08/22); halfway bed level 2; Auth # [id number].
Plan: Discharge to [facility].
--- NOTE | 2024-08-17 10:36 | PN.CDI ---
CDI
- -
CDI:
Physician Documentation Request
Admit Date: 08/12/24 19:15
Dear Doctor Walter,
Clinical Indicators:
Patient admitted with iliac artery occlusion; s/p left femoral-femoral bypass 08/13.
Anesthesia report: IVF: 1000 ml EBL 25 ml
IVF: NSS x 2 L post op
Hgb/Hct trend:
08/12/24 08/13/24 08/16/24
13:20 03:21 05:19
Hgb 12.8 L 11.4 L 10.8 L
Hct 39.0 33.5 L 33.2 L
Based on the above, could you clarify in the progress notes, the appropriate diagnosis, if significant, that supports the above abnormalities and additional evaluation, monitoring and/or treatment rendered:
Anemia, due to acute blood loss and hemodilution
Anemia due to hemodilution only
Anemia, other (please specify)
Abnormal lab values, clinically insignificant
Other
Use of terms such as suspected, likely, concern for, or probable (associated with a specific diagnosis that is being evaluated, monitored, or treated as if it exists) are acceptable and can be coded in the inpatient setting, when documented at the
time of discharge.
Thank you,
Lori Ruggiero RN BSN
CDI Specialist
available via tiger text
Please use your independent medical judgment in providing your response.
--- NOTE | 2024-08-17 17:32 | PTCARENOTE ---
hr consistently 120's post physical therapy. Dr. Watson aware. hr currently 99. no new orders, pt asymptomatic. will monitor.
[2024-08-18] MEDS: ELIQUIS 5 MG PO (07:12)
[2024-08-18] MEDS: LOW STRENGTH ASPIRIN 81 MG PO (07:12)
[2024-08-18] MEDS: NORVASC 5 MG PO (07:12)
[2024-08-18] MEDS: LASIX 20 MG PO (07:14)
[2024-08-18] MEDS: SPIRIVA RESPIMAT 2.5 MCG 2 PUFF INH (07:23)
[2024-08-18] MEDS: SYMBICORT 160/4.5 MCG INHALER 2 PUFF INH (07:23)
[2024-08-18 07:36] VITALS: BP 110/74
[2024-08-18 07:39] LABS: % Basophils 0.6 % (0-2); % Eosinophils 4.4 % (0-6); % Immature Granulocytes 0.6 % (0-0.5); % Lymphocytes 14.5 % (20.5-51.1); % Monocytes 12.9 % (1.7-9.3); Absolute Basophils 0.1 10^3/uL (0-0.2); Absolute Eosinophils 0.4 10^3/uL (0-0.7); Absolute Immature Granulocytes 0.1 10^3/uL (0-0.05); Absolute Lymphocytes 1.2 10^3/uL (1.2-3.4); Absolute Monocytes 1.1 10^3/uL (0.1-0.6); Absolute Neutrophils 5.7 10^3/uL (1.4-6.5); Hematocrit 32.5 % (39.0-52.0); Hemoglobin 10.7 g/dL (13.0-18.0); Mean Corp Hgb Conc. 32.9 g/dL (33.0-37.0); Mean Corpuscular Hgb 31.7 pg (27.0-31.0); Mean Corpuscular Volume 96.2 fL (80.0-94.0); Mean Platelet Volume 11.3 fL (7.4-10.4); Nucleated Red Blood Cells % 0 % (-); Platelet Count 271 10^3/uL (130-400); Red Blood Cell Count 3.38 10^6/uL (4.70-6.10); Red Cell Dist. Width 13.6 % (11.5-14.5); White Blood Cell Count 8.4 10^3/uL (4.8-10.8)
--- NOTE | 2024-08-18 07:55 | PTCARENOTE ---
kelli dressing to bilat groin removed per Dr. red order.
[2024-08-18 08:07] LABS: Blood Urea Nitrogen 29 mg/dl (9-20); Calcium 8.8 mg/dl (8.4-10.2); Carbon Dioxide 34 mmol/L (22-30); Chloride 102 mmol/L (98-107); Estimated Creatinine Clearance 49 ml/min; Glucose 98 mg/dl (70-99); Sodium 141 mmol/L (135-145); eGFR > 60.00
--- NOTE | 2024-08-18 09:07 | W.PN.HOSP.TC ---
Today's Communication/Plan
-
dc today. See dictated note
Assessment / Plan
Assessment / Plan
08/12/24 CT a/p
8.6 x 4.8 x 5.8 cm Fusiform distal abdominal aortic aneurysm. Bilateral aneurysmal dilatation of the common iliac arteries, right greater than left.
Complete occlusion of the LEFT common iliac artery and external iliac artery as well as the left internal iliac artery. Short segment reconstitution of left common femoral artery. Otherwise occlusion of the entire left superficial femoral artery and
most of the popliteal artery. Questionable minimal proximal contrast enhancement of the trifurcation vessels within the calf. However, no distal runoff.
Moderate to high-grade focal stenosis of the proximal RIGHT external iliac artery. Mild aneurysmal dilatation of the proximal right superficial femoral artery. Occlusive thrombus throughout the entire right superficial femoral artery. Reconstitution
of the popliteal artery.
Incidental extravascular findings: Advanced emphysematous changes. 1 cm nodule in the right lateral costophrenic angle has increased in size. Recommend follow-up PET/CT.
Heterogeneous enhancement of the liver which may related to phase of enhancement. It would be difficult to exclude the possibility of diffuse parenchymal process, such as fatty infiltration or fibrotic changes.

1. 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
Large fusiform distal abdominal aortic aneurysm
Bilateral iliac artery aneurysm
-Patient underwent right to left femoral-femoral bypass using PTFE graft on 08/13
-Patient was intubated as part of the OR, was able to be extubated after few hours
-Patient heparin drip transitioned to Eliquis 5 mg bid
-Vascular surgery cleared patient for discharge from their perspective
-Patient large distal fusiform AAA is not amenable to surgery/high risk procedure. [facility] sx (Pt follows with Dr. Jaci Myles at [facility]) also recommended against sx in past.
Patient states he is to follow up with Vasc Surg at [place], as per sister, pt has appt with Dr. Myles Sep 07, at [facility].
CLINT drain removed 08/18,
2. History of recent venous thromboembolism
-Patient not been compliant with Eliquis per family. Importance of compliance reviewed with pt
-Transition patient back on Eliquis
3. Right upper lobe spiculated pulmonary nodule
-Noted on CT chest April 14, follow-up PET scan was recommended that the time
-Will require follow-up with pulmonology in office. Pt goes to [facility] at [place], pt reminded of importance of follow up
4. Advanced COPD
Chronic hypoxic respiratory failure
-Patient uses oxygen through nasal cannula at baseline
-No signs of exacerbation
-continue nebulizer therapy
5. Essential hypertension
-Postoperatively patient was requiring vasopressor support,
-Resume blood pressure medications slowly as blood pressure allows
BP now 120/76-->114/71, was on Amlodipine 10 mg qd and Lisinopril 40, will resume Amlodipine at reduced dose, received 2.5 mg on 08/15, on 08/16 will go to 5 mg daily. Will continue to hold Lisinopril
6. Leukocytosis without fever
-Reactive in nature, monitor off antibiotic
15.6-->15.8-->11.7-->8.4k
7. Anemia, due to acute blood loss and hemodilution
stable, should recheck Hgb in SNF
Orthostatic hypotension
T12 vertebral compression fracture
History of renal calculi
Pt usually lives with sister and b-i-l, they will be out of area visiting their son for the next 10 days and as such, plan is [place] [place] placed and discussed with AURELIA Carrillo. Pt is set to go.
Full code
DVT prophylaxis�Eliquis
More than 30 minutes spent in discharge including
Final examination of the patient
Summarizing hospital stay
Instructions for continuing care to all relevant caregivers
Preparation of discharge records, prescriptions, and referral forms
Total time spent (in minutes): 45
Anticipated Discharge: Today
Subjective/Interval History
-
Date of Service: August 18, 2024
Feels well, asking about timing of dc
Objective Data
-
Labs:
Laboratory Results
08/18/24
06:37
WBC 8.4
Hgb 10.7 L
Hct 32.5 L
Plt Count 271
Sodium 141
Potassium 5.0
Chloride 102
Carbon Dioxide 34 H
BUN 29 H
Creatinine 0.9
Glucose 98
Calcium 8.8
Vital Signs:
Vital Signs
Temp Pulse Resp BP Pulse Ox
98.6 F 100 18 110/74 96
08/18/24 07:36 08/18/24 07:36 08/18/24 07:36 08/18/24 07:36 08/18/24 07:36
I&O
08/17/24 08/18/24 08/19/24
06:59 06:59 06:59
Intake Total 1260 / 1260 1320 / 1320
Output Total 1070 / 1070 1000 / 1000
Balance 190 / 190 320 / 320
Review of Systems
-
History Source: Patient
Constitutional: Denies Fever
EENT: Reports No Symptoms Reported
Respiratory: Reports Trouble Breathing (chronic, pt feels he is at his baseline); Denies Cough
Cardiac: Reports No Symptoms
Abdomen/GI: Reports No Symptoms
Musculoskeletal: Reports No Symptoms (denies leg pain)
Physical Exam
-
General: Well Developed, Well Nourished, No Apparent Distress and Cachectic (supraclavicular muscle wasting)
HEENT: Normocephalic, Atraumatic and Moist Mucous Membranes
Respiratory: Other (COPD changes, no active wheeze, prolonged expiratory phase on forced expiration with pursed lip)
Cardiac: Regular Rhythm and S1/S2
GI: Soft, Nontender, Nondistended and Other (CLINT dressing on left side, drain in place on rt side )
Musculoskeletal: No Clubbing, No Cyanosis, No Edema and Other (left foot is warm, good color)
Neuro: Awake, Alert and Oriented
--- NOTE | 2024-08-18 09:50 | CM ---
Addendum entered by Ann Marie Jewlel RN 08/18/24 10:52:
Correction:
Fax report to: [phone]
Original Note:
Reviewed the chart notes. Patient for discharge today.
Plan: Discharge to [place] at [facility].
Call report to: [phone]
Fax report to: [phone]
Medical necessity and transport forms on chart.
--- NOTE | 2024-08-18 09:59 | PTCARENOTE ---
report given to rn @ helio Carmona at [facility]
--- NOTE | 2024-08-18 10:56 | W.DS.TRANS ---
DC Summary - Jacqu[employer]
-
Discharge Instructions:
Discharge Diagnosis/Procedures Fem-Fem bypass 08/13
Diet Regular
Activity No strenuous activity
Driving Restrictions Not until seen by your Dr
Bathing Restrictions OK to Shower
Blood Work CBC, BMP in 1 week
Instructions:
Stand-Alone Forms: DC Instr - Vascular OR
Changes to Home Medications: Yes
Discharge Medications:
DC Medications w/original date entered in [employer]
albuterol sulfate 90 mcg/actuation aerosol inhaler 2 puff inhalation R Q4HPRN PRN sob/wheezing 04/03/23
fluticasone fur. 200 mcg-umeclid 62.5 mcg-vilant 25 mcg inhalat.powder (Trelegy Ellipta) 1 ea inhalation R DAILY Lung/Breathing Issues 04/03/23
amlodipine 10 mg tablet 10 mg PO DAILY Blood Pressure 08/12/24
apixaban 5 mg tablet (Eliquis) 5 mg PO BID Blood Clot Prevention/Tx 08/12/24
furosemide 20 mg tablet 20 mg PO DAILY Fluid Retention/Swelling 08/12/24
acetaminophen 325 mg tablet 650 mg (2 x 325 mg) PO Q6HPRN PRN mild pain/ fever>100.5F #60 tabs 08/18/24
aspirin 81 mg chewable tablet 81 mg PO DAILY #30 tabs 08/18/24
Home Medication Changes
Lisinopril is on hold pending following BP
Aspirin has been added
Pending Results: No
[2024-08-18 11:05] VITALS: BP 149/82
== END 2024-08-18 11:49 | DRG 252 ==
LOC: 2 NORTH 19:15
PROVIDERS: Hospitalist; Nurse Practitioner; Nurse Practitioner Acute Care; Nurse Practitioner Primary Care; Physician Assistant; ADMITTING PHYSICIAN Hospitalist; ATTENDING PHYSICIAN Internal Medicine; EMERGENCY PHYSICIAN Emergency Medicine; FAMILY PHYSICIAN Family Medicine; OTHER PHYSICIAN Internal Medicine Critical Care Medicine; OTHER PHYSICIAN Surgery Vascular Surgery
PROC: 5A1935Z Respiratory Ventilation, Less than 24 Consecutive Hours (ICD-10-PCS; 2024-08-12)
PROC: 041K0JJ Bypass Right Femoral Artery to Left Femoral Artery with Synthetic Substitute, Open Approach (ICD-10-PCS; 2024-08-13)
DX: I74.5 Embolism and thrombosis of iliac artery (principal); E43 Unspecified severe protein-calorie malnutrition; R64 Cachexia; Z68.1 Body mass index [BMI] 19.9 or less, adult; D62 Acute posthemorrhagic anemia; I71.40 Abdominal aortic aneurysm, without rupture, unspecified; I72.3 Aneurysm of iliac artery; J44.9 Chronic obstructive pulmonary disease, unspecified; I10 Essential (primary) hypertension; F17.200 Nicotine dependence, unspecified, uncomplicated; Z99.81 Dependence on supplemental oxygen
CPT/HCPCS: 35661; 35681; 71045; 75635; 80048; 80053; 82805; 84478; 85025; 85027; 85610; 85730; 86850; 86900; 86901; 93005; 93971; 94002; 94003; 94640; 97116; 97163; 97166; 97530; 99285; C1768; Q9967

== ENCOUNTER → 2024-09-24 12:41 | Outpatient (REF) | payer OTHER, SELFPAY | LOC: RAD 12:41 | PROVIDERS: ATTENDING PHYSICIAN Registered Nurse; FAMILY PHYSICIAN Family Medicine | DX: I74.5 Embolism and thrombosis of iliac artery (principal) | CPT/HCPCS: 93922; 93925 ==

== ENCOUNTER → 2024-09-29 15:31 | Outpatient (REF) | payer OTHER, SELFPAY | LOC: REG 15:31 | PROVIDERS: ATTENDING PHYSICIAN Internal Medicine Critical Care Medicine | DX: J44.9 Chronic obstructive pulmonary disease, unspecified (principal); R91.8 Other nonspecific abnormal finding of lung field | CPT/HCPCS: 87070; 87102; 87116; 87205 ==